=== PATIENT | female | born 1950 | race Caucasian/White ===

== ENCOUNTER 2021-12-14 23:19 | Inpatient (IN) | payer MEDICARE, OTHER, SELFPAY ==
[2021-12-14 23:23] VITALS: BP 201/83; PULSE 86; RESP 18; TEMP 36.2; O2SAT 94; BMI 54.8
--- NOTE | 2021-12-14 23:32 | CTR_ITS ---
PROCEDURE INFORMATION: Exam: CT Abdomen And Pelvis With Contrast Exam date and time: 12/15/2021 1:18 AM Age: 71 years old Clinical indication: Abdominal pain; Epigastric; Additional info: Abd pain TECHNIQUE: Imaging protocol: Computed tomography of the abdomen and pelvis with contrast. Radiation optimization: All CT scans at this facility use at least one of these dose optimization techniques: automated exposure control; mA and/or kV adjustment per patient size (includes targeted exams where dose is matched to clinical indication); or iterative reconstruction. Contrast material: OMNI 300; Contrast volume: 96 ml; Contrast route: INTRAVENOUS (IV); COMPARISON: No relevant prior studies available. RADIATION DOSE METRICS: Total DLP (mGy-cm): 2567.64 FINDINGS: Liver: Unremarkable. Gallbladder and bile ducts: Many gallstones in the gallbladder. The gallbladder wall is thickened, suggesting cholecystitis. Pancreas: Unremarkable. Spleen: Unremarkable. Adrenal glands: Unremarkable. Kidneys and ureters: The kidneys are unremarkable. No renal stones identified. No hydronephrosis on either side. Stomach and bowel: No bowel obstruction identified. Diverticulosis of the colon without evidence of diverticulitis. Appendix: A normal-appearing appendix is seen in the right lower quadrant. Intraperitoneal space: No free intraperitoneal air or fluid identified. Small fat-containing umbilical hernia. Arteries: Unremarkable. No abdominal aortic aneurysm. Lymph nodes: Unremarkable. Urinary bladder: Unremarkable as visualized. Reproductive: Prominent leiomyoma arising from the anteroinferior surface of the body of the uterus. Bones/joints: Moderate degenerative changes of the lumbar spine. Soft tissues: Unremarkable. CT/CT abdomen pelvis w con* [id number] IMPRESSION: 1. Many gallstones in the gallbladder. The gallbladder wall is thickened, suggesting cholecystitis.
--- NOTE | 2021-12-14 23:33 | ED_ITS ---
HPI - Abdominal Pain General: Chief Complaint: Abdominal Pain Stated Complaint: abd pain Time Seen by Provider: 12/14/21 23:23 Source: patient Mode of arrival: ambulatory Limitations: no limitations History of Present Illness: 71-year-old female who states that she has been having epigastric abdominal pain for months. She states it seems to happen after she is eating states that she ate this evening and start having severe epigastric abdominal pain at 7 PM that radiated her back states that since then its resolved she has no pain currently she has had some nausea denies any diarrhea denies any fevers. Denies any chest pain Associated Symptoms: Denies chills, dysuria and fever(s) Review of Systems Const: Denies: fever(s), chills, body aches or change in appetite Eyes: Denies: blurry vision or eye discomfort ENMT: Denies: throat pain or dental pain Card: Denies: chest pain Resp: Denies: dyspnea GI: Reports: abdominal pain : Denies: dysuria Musc: Denies: neck pain or back pain Skin/Breast: Denies: rash Neuro: Denies: headache(s) Psych: Denies: depression Vivek/Lymph: Denies: easy bruising All/Imm: Denies: urticaria PFSH ED PFSH: Medical History (Updated 12/15/21 @ 13:55 by Brenton Walters MD) Hypertension No pertinent past medical history Surgical History (Updated 12/15/21 @ 06:39 by Dagoberto Diego MD) H/O dilation and curettage Social History (Updated 12/14/21 @ 23:33 by Robert Richmond MD) Substance/Drug Use: never Physical Exam Const: COMMON NORMALS: no acute distress, patient oriented x3 and healthy appearing HENMT: COMMON NORMALS: normocephalic and atraumatic HEAD & SCALP: normocephalic and atraumatic Eye: COMMON NORMALS: Equal, round and reactive pupils present and EOMs intact bilaterally PUPIL: Yes Equal, round and reactive pupils present Neck/C-Spine: COMMON NORMALS: full ROM and supple Chest: COMMONS NORMALS: normal inspection of the chest and normal palpation of entire chest wall Resp: COMMON NORMALS: normal respiratory effort, No retractions, No use of accessory muscles and clear to auscultation bilaterally AUSCULTATION: clear to auscultation bilaterally Cardio: COMMON NORMALS: regular rate, regular rhythm and No murmurs present (Cardio) RATE: regular rate RHYTHM: regular rhythm GI: COMMON NORMALS: Normal to inspection, nondistended, normoactive bowel sounds present, Soft to palpation, non-tender and no masses PALPATION: Yes Soft to palpation Extremity: COMMON NORMALS: normal to inspection and full ROM Neuro: COMMON NORMALS: patient oriented x3, moves all extremities and no focal motor deficits Psych: COMMON NORMALS: mental status grossly normal, Normal thought process present and cooperative THOUGHT PROCESS: Normal thought process present Skin: COMMON NORMALS: no rashes or lesions noted and no wounds GENERAL SKIN EXAM: no rashes or lesions noted Course Vital Signs: Vital signs: Vital Signs Temperature 97.7 F 12/15/21 15:56 Pulse Rate 78 12/15/21 15:56 Respiratory Rate 18 12/15/21 15:56 Blood Pressure 159/70 12/15/21 15:56 Pulse Oximetry 93 12/15/21 15:56 MDM - Abdominal Pain Medical Decision Making Patient presents here with cholecystitis she did have elevated lipase did MRCP to rule out a choledocholithiasis that showed no signs of choledocholithiasis spoke to Dr. Romeo yo along with the hospitalist as she does have hypertension we will admit to hospitalist with Dr. Walters consulted. Lab Data : 12/14/21 23:55 12/15/21 00:20 Labs/Radiology: Radiology Impressions Abdomen/Pelvis CT 12/14/21 23:32 IMPRESSION: 1. Many gallstones in the gallbladder. The gallbladder wall is thickened, suggesting cholecystitis. Gallbladder Ultrasound 12/15/21 00:59 IMPRESSION: 1. Cholelithiasis. Cholangiopancreatography MRI 12/15/21 02:54 IMPRESSION: 1. Cholelithiasis with suspicion of acute cholecystitis. 2. No choledocholithiasis identified. Laboratory Results WBC 11.2 10^3/uL (4.0-10.0) H 12/14/21 23:55 RBC 5.29 10^6/uL (4.1-5.3) 12/14/21 23:55 Hgb 15.1 g/dL (11.5-15.3) 12/14/21 23:55 Hct 45.7 % (37.0-47.0) 12/14/21 23:55 MCV 86.4 fl (81-99) 12/14/21 23:55 MCH 28.5 pg (28.0-34.0) 12/14/21 23:55 MCHC 33.0 g/dL (30.0-36.0) 12/14/21 23:55 RDW 13.7 % (12.1-15.1) 12/14/21 23:55 Plt Count 169 10^3/cmm (130-400) 12/14/21 23:55 MPV 11.1 fL (7.4-10.4) H 12/14/21 23:55 Neut % (Auto) 81.7 % 12/14/21 23:55 Lymph % (Auto) 10.7 % 12/14/21 23:55 Forrest % (Auto) 5.8 % 12/14/21 23:55 Eos % (Auto) 1.2 % 12/14/21 23:55 Baso % (Auto) 0.3 % 12/14/21 23:55 Neut # (Auto) 9.17 10^3/uL (1.8-7.7) H 12/14/21 23:55 Lymph # (Auto) 1.2 10^3/uL (0.8-4.8) 12/14/21 23:55 Forrest # (Auto) 0.7 10^3/uL (0.2-0.9) 12/14/21 23:55 Eos # (Auto) 0.1 10^3/uL (0.0-0.8) 12/14/21 23:55 Baso # (Auto) 0.0 10^3/uL (0.0-0.1) 12/14/21 23:55 Nucleated RBC % (auto) 0 % 12/14/21 23: Nucleated RBCs # 0.0 /100WBC 12/14/21 23:55 Sodium 136 mmol/L (136-145) 12/15/21 00:20 Potassium 4.0 mmol/L (3.5-5.1) 12/15/21 00:20 Chloride 101 mmol/L (98-107) 12/15/21 00:20 Carbon Dioxide 24 mmol/L (22-29) 12/15/21 00:20 Anion Gap 15.0 (5-19) 12/15/21 00:20 BUN 10 mg/dL (8-23) 12/15/21 00:20 Creatinine 0.6 mg/dL (0.5-0.9) 12/15/21: GFR Calculation 98.8 mL/min (90-130) 12/15/21:20 Glucose 145 mg/dL (65-115) H 12/15/21 00: Estimat Average Glucose 100 12/15/21 00: Hemoglobin A1c 5.1 % (4.0-6.0) 12/15/21 00: Calculated Osmolality 284 mOsm/kg (285-295) L 12/15/21 00:20 Calcium 8.2 mg/dL (8.5-10.5) L 12/15/21: Total Bilirubin 1.3 mg/dL (0.15-1.2) H 12/15/21 00:20 AST 434 U/L (0-32) H 12/15/21 00: ALT 286 U/L (0-33) H 12/15/21 00: Alkaline Phosphatase 154 IU/L (35-105) H 12/15/21 00:20 NT-Pro-B Natriuret Pep 360 pg/mL (0-125) H 12/15/21 00:20 Total Protein 6.5 g/dL (6.6-8.7) L 12/15/21:20 Albumin 4.0 g/dL (3.5-5.2) 12/15/21 00: Globulin 2.5 g/dL (1.3-4.6) 12/15/21 00: Lipase 3816 U/L (13-60) H 12/15/21 00:20 Procalcitonin 0.05 ng/mL (0-0.5) 12/15/21 00: TSH 4.30 uIU/mL (0.27-4.20) H 12/15/21 00:20 Urine Color Yellow (Yellow) 12/15/21 00: Urine Appearance Clear (CLEAR) 12/15/21 00: Urine pH 5 (5-7) 12/15/21 00:02 Ur Specific Peculiar 1.020 (1.005-1.030) 12/15/21 00:02 Urine Protein Neg (Negative) 12/15/21 00:02 Urine Glucose (UA) Norm (Normal) 12/15/21 00:02 Urine Ketones Negative (Negative) 12/15/21 00:02 Urine Blood Neg (Negative) 12/15/21 00:02 Urine Nitrate Negative (Negative) 12/15/21 00:02 Urine Bilirubin Neg (Negative) 12/15/21 00:02 Urine Urobilinogen 1 mg/dL (Negative) H 12/15/21 00:02 Ur Leukocyte Esterase Negative (Negative) 12/15/21 00:02 Discharge Plan Discharge Patient Disposition: Admitted As Inpatient Admit Provider: Dagoberto Diego Condition: Stable Coding Level of Care Code ED Circulation Representative for Chg Fwd Exam Comprehensive
[2021-12-14 23:50] VITALS: BP 199/101; PULSE 77; RESP 16; O2SAT 94
[2021-12-15] VITALS (8 sets, daily range): BP systolic 138–217; BP diastolic 62–92; PULSE 72–87; RESP 16–18; TEMP 36.4–36.6; O2SAT 92–95
[2021-12-15] MEDS: sodium chloride 0.9% 1,000 ML 999 ML IV (00:07)
[2021-12-15 00:15] LABS: Basophils % 0.3 %; Eosinophils # 0.1 10^3/uL (0.0-0.8); Eosinophils % 1.2 %; Hematocrit 45.7 % (37.0-47.0); Hemoglobin 15.1 g/dL (11.5-15.3); Lymphocytes # 1.2 10^3/uL (0.8-4.8); Lymphocytes % 10.7 %; Mean Corpuscular Hemoglobin 28.5 pg (28.0-34.0); Mean Corpuscular Volume 86.4 fl (81-99); Mean Platelet Volume 11.1 fL (7.4-10.4); Monocytes # 0.7 10^3/uL (0.2-0.9); Monocytes % 5.8 %; Neutrophils # 9.17 10^3/uL (1.8-7.7); Neutrophils % 81.7 %; Nucleated Red Blood Cells % 0 %; Platelet Count 169 10^3/cmm (130-400); Red Blood Count 5.29 10^6/uL (4.1-5.3); Red Cell Distribution Width 13.7 % (12.1-15.1); White Blood Count 11.2 10^3/uL (4.0-10.0)
[2021-12-15 00:17] LABS: Add Urine Microscopic? NO; Charge for UA Resulting for Rev
[2021-12-15 00:21] LABS: Bilirubin Urine Neg (Negative); Blood Urine Neg (Negative); Glucose Urine UA Norm (Normal); Ketones Urine Negative (Negative); Leukocyte Esterase Urine Negative (Negative); Nitrate Urine Negative (Negative); Protein Urine Neg (Negative); Urine Appearance Clear (CLEAR); Urine Color Yellow (Yellow); Urobilinogen Urine 1 mg/dL (Negative); pH Urine 5 (5-7)
[2021-12-15 00:56] LABS: Alanine Aminotransferase 286 U/L (0-33); Alkaline Phosphatase 154 IU/L (35-105); Aspartate Amino Transferase 434 U/L (0-32); Blood Urea Nitrogen 10 mg/dL (8-23); Calcium 8.2 mg/dL (8.5-10.5); Carbon Dioxide 24 mmol/L (22-29); Chloride 101 mmol/L (98-107); Globulin 2.5 g/dL (1.3-4.6); Glomerular Filtration Rate 98.8 mL/min (90-130); Glucose 145 mg/dL (65-115); Osmolality Calculated 284 mOsm/kg (285-295); Sodium 136 mmol/L (136-145); Total Bilirubin 1.3 mg/dL (0.15-1.2); Total Protein 6.5 g/dL (6.6-8.7)
--- NOTE | 2021-12-15 00:59 | USR_ITS ---
PROCEDURE INFORMATION: Exam: US Abdomen, Limited; Right Upper Quadrant Exam date and time: 12/15/2021 1:50 AM Age: 71 years old Clinical indication: Abdominal pain; Flank; Right upper quadrant (ruq); Additional info: Abd pain TECHNIQUE: Imaging protocol: US abdomen. Real time ultrasound with image documentation. Limited exam focused on the right upper quadrant. COMPARISON: CT abdomen pelvis w con* [id number] 12/15/2021 1:18 AM FINDINGS: Liver: Visualized portions of the liver demonstrate normal contour and echogenicity. No intrahepatic or extrahepatic biliary dilation identified. Gallbladder: Many gallstones in the gallbladder. Gallbladder wall thickness is at the upper limit of normal at 0.3 cm. No pericholecystic fluid identified. Sonographic Zimmerman sign not present. Common bile duct: The common bile duct is upper limits of normal in caliber at 0.7 cm. No common bile duct stone identified. Pancreas: Limited visualization of the pancreas due to bowel gas. Visualized portion is unremarkable. Right kidney: The right kidney measures 11.1 cm in length. No hydronephrosis, calculi, or solid masses identified involving the right kidney. There is questionably a 2.7 cm cyst in the right kidney upper pole on this study, however, this is not corroborated on recent CT scan and is not felt to represent a true finding. US/US gall bladder [id number] IMPRESSION: 1. Cholelithiasis.
[2021-12-15] MEDS: labetalol 5 mg/mL SDV 20mL 10 MG IVP (01:06)
[2021-12-15] MEDS: iohexol 300 mg/mL 100 mL Btl IV (01:26)
[2021-12-15 01:49] LABS: Lipase 3816 U/L (13-60)
[2021-12-15] MEDS: piperacillin-tazobactam 3.375 GM in sodium chloride 0.9% (plus) 50 ML IV ×4 (02:30→23:59)
[2021-12-15] MEDS: labetalol 5 mg/mL SDV 20mL 20 MG IVP (02:31)
--- NOTE | 2021-12-15 02:54 | MRR_ITS ---
PROCEDURE INFORMATION: Exam: MR Abdomen Without Contrast Exam date and time: 12/15/2021 4:34 AM Age: 71 years old Clinical indication: Generalized; Patient HX: Abdominal pain x 2 mos, progressively getting worse; Additional info: Choledocholithiasis TECHNIQUE: Imaging protocol: MR of the abdomen without contrast. COMPARISON: CT abdomen pelvis w con* [id number] 12/15/2021 1:18 AM FINDINGS: Liver: No mass. Gallbladder and bile ducts: Many gallstones in the gallbladder. The gallbladder wall has a thickened appearance. Mild pericholecystic edema. Appearance suggests cholecystitis. No choledocholithiasis identified. Pancreas: Unremarkable. No ductal dilation. Spleen: Unremarkable. No splenomegaly. Adrenal glands: Unremarkable. No mass. Kidneys and ureters: Unremarkable. No solid mass. No hydronephrosis. Stomach and bowel: Visualized stomach and intestines are unremarkable. Intraperitoneal space: No free fluid. Arteries: No abdominal aortic aneurysm. Bones/joints: Unremarkable. Soft tissues: Unremarkable. MR/MR MRCP [id number] IMPRESSION: 1. Cholelithiasis with suspicion of acute cholecystitis. 2. No choledocholithiasis identified.
[2021-12-15] MEDS: LORazepam 2 mg/mL INJ 1 mL 0.5 MG IVP (04:27)
--- NOTE | 2021-12-15 06:02 | PM.HP ---
Providers/Chief Complaint Admitting Physician: Dagoberto Diego MD Chief Complaint: abd pain History of Present Illness Dmitriy Henriquez is a 71 year old female who has history of hypertension, obesity does not carry diagnosis of CHF or diabetes presented to the hospital with chief complaint of dry heaves and abdominal pain Patient is stating that she has been experiencing abdominal cramps and pain for last 2 months every time she is eating heavy meals, she loves to drink milk. Her abdominal pain gets worse after meals but last night she could not tolerate her pain to associated with rigors/chills. She is denying fever, vomiting, diarrhea, chest pain. She has bilateral lower extremity swelling no previous history of CHF, DC or coronary disease. She does not carry diagnosis of diabetes. No previous history of pancreatitis or cholecystitis. In the ER she was diagnosed with pancreatitis however CT abdomen pelvis did not show pancreatic inflammation lipase enzymes are high, multiple gallstones without CBD dilation, no signs of cholangitis, there was initially concern to transfer for possible ERCP however gallbladder ultrasound did not show CBD dilation, Dr. Walters requested to admit under hospitalist service When I examined the patient she was hypertensive, afebrile, abnormal liver enzymes and lipase noted, Zimmerman sign negative, no active nausea or vomiting In the ER she received multiple doses of labetalol, Ativan, she received 1 dose of Zosyn, Review of Systems Const: Reports: chills and fatigue; Denies: fever(s) Eyes: Denies: change in vision ENMT: Denies: throat pain Card: Reports: edema; Denies: chest pain Resp: Denies: dyspnea GI: Reports: abdominal pain and nausea : Denies: flank pain or dribbling Musc: Denies: neck pain Skin/Breast: Denies: rash Neuro: Denies: headache(s) Psych: Denies: anxiety Endo: Denies: polyuria Vivek/Lymph: Denies: easy bruising All/Imm: Denies: urticaria PFSH Acute PFSH: Medical History (Updated 12/15/21 @ 06:39 by Dagoberto Diego MD) Hypertension No pertinent past medical history Surgical History (Updated 12/15/21 @ 06:39 by Dagoberto Diego MD) H/O dilation and curettage Social History (Updated 12/14/21 @ 23:33 by Robert Richmond MD) Substance/Drug Use: never Vitals/I&O/Wt Last Vital Signs Temp 97.2 F L 12/14/21 23:23 Pulse 75 12/15/21 05:18 Resp 18 12/15/21 05:18 BP 215/74 12/15/21 05:18 Pulse Ox 95 12/15/21 05:18 12/14/21 12/14/21 12/15/21 14:59 22:59 06:59 Intake Total 1000 / 1000 Balance 1000 / 1000 Weight last 48 hrs Weight 136.078 kg Physical Exam Narrative: Morbidly obese female Currently laying flat in her bed Hypertensive Nonfocal neuro exam EOMI, PERRLA Abdomen soft, Zimmerman sign negative Distended abdomen No signs of peritonitis No rebound tenderness or rigidity 1+ pitting edema bilateral lower extremities Hard to assess her volume status Morbidly obese Pleasant and cooperative Nonfocal neuro exam Saturating well on room air No adventitious rhonchi or crackles No active chest pain Data : 12/14/21 23:55 12/15/21 00:20 A&P Assessment and plan (1) Pancreatitis: Status: Acute (2) Cholecystitis: Status: Acute (3) Hypertensive urgency: Status: Acute Plan Acute cholecystitis Cholelithiasis induced cholecystitis Gallstone induced pancreatitis Most likely gallstone has passed through the ducts No CBD dilation No signs of cholangitis Afebrile No signs of sepsis MRCP, CT abd REVIEWED Gallbladder ultrasound reviewed General surgery is consulted We will keep her n.p.o. Continue IV fluids and Zosyn Closely monitor for development of cholangitis, She is at high risk for recurrence of symptoms, stone obstruction as there are multiple gallstones identified on the ultrasound of the gallbladder For hypertensive urgency, will add diuretic, chlorthalidone, would avoid lisinopril in anticipation of surgery, she has trace edema of lower extremities would avoid metoprolol and amlodipine, will request echo to rule out CHF, She might benefit from sleep study outpatient Check A1c level Trend lipase Patient does not want chest compression or intubation however agreeable for surgical intervention DNR/DNI N.p.o. DVT prophylaxis: SCDs High risk for metabolic syndrome Attestations Medical Necessity Statement*: Patient has cholecystitis, cholangitis choledocholithiasis high risk for cholangitis, will need more than 2 midnights in the hospital Time Spent in Patient Care: 40mins Coding Level of Care Code Acute Commercial Loan Officer for Chg Fwd Diagnoses Pancreatitis K85.90 Cholecystitis K81.9 Hypertensive urgency I16.0
[2021-12-15 06:34] LABS: Procalcitonin 0.05 ng/mL (0-0.5)
[2021-12-15] MEDS: hyDRALAzine 20 mg/mL INJ 1 mL 10 MG IVP (07:25)
--- NOTE | 2021-12-15 08:11 | USCV_ITS ---
Dmitriy Henriquez Age: 71 Gender: F : 1950 Exam Date: 12/15/2021 09:37 Ordering Phys: Dagoberto Deigo MD Technologist: Thao Faust [place] [facility] [place]: new chf BP: 151 / 81 HR: 79 Rhythm: Sinus Technical Quality: MEASUREMENTS (Male / Female) Normal Values 2D ECHO LV Diastolic Diameter PLAX 3.5 cm 4.2 - 5.9 / 3.9 - 5.3 cm LV Systolic Diameter PLAX 2.4 cm IVS Diastolic Thickness 1.9 cm 0.6 - 1.0 / 0.6 - 0.9 cm IVS Systolic Thickness 2.3 cm LVPW Diastolic Thickness 1.4 cm 0.6 - 1.0 / 0.6 - 0.9 cm LVPW Systolic Thickness 1.8 cm LVOT Diameter 2.0 cm LV Ejection Fraction 2D Teich 62.2 % LV Ejection Fraction MOD 2C 79.9 % LV Ejection Fraction 2C AL 79.1 % LA Diameter 4.0 cm LA Width 4.0 cm LA Height 5.1 cm RA Width 3.6 cm RA Height 4.8 cm Aorta at Sinotubular Diameter 2.5 cm M-MODE Aortic Annulus Diameter 2.4 cm LA Ao Ratio MM 1.5 MV E Point Septal Separation 0.5 cm DOPPLER AV Peak Velocity 192.0 cm/s LVOT Peak Velocity 124.0 cm/s AV Area Cont Eq vti 2.4 cm squared AV Area Cont Eq pk 2.1 cm squared MV Peak Velocity 131.0 cm/s MV Area PHT 3.7 cm squared Mitral E to A Ratio 1.1 MV E' Velocity 56.5 cm/s Mitral E to MV E' Ratio 13.5 Mitral E to LV E' Lateral Ratio 13.5 Mitral E to LV E' Septal Ratio 13.6 TR Peak Velocity 335.6 cm/s TR Peak Gradient 45.1 mmHg TR Mean Velocity 281.4 cm/s TR Mean Gradient 32.9 mmHg TR Velocity Time Integral 122.0 cm TV Peak E Velocity 81.0 cm/s Right Atrial Pressure 3.0 mmHg Pulmonary Artery Systolic Pressu 48.1 mmHg PV Peak Velocity 136.0 cm/s RV Acceleration Time 0.1 s RV Ejection Time 0.3 s RV AcT/ET 0.3 FINDINGS Left Ventricle Normal left ventricular size. Normal LV systolic function with EF of 55-60%. No regional wall motion abnormalities. Diastolic function is normal Right Ventricle The right ventricle is normal in size and function. Right Atrium The right atrium is normal in size. Left Atrium The left atrium is normal in size. Mitral Valve Structurally normal mitral valve without significant stenosis or prolapse. There is mild mitral regurgitation. Aortic Valve Grossly normal. Mild aortic stenosis with mean gradient across the aortic valve of 10.4mmHg. There is mild to moderate aortic regurgitation. Tricuspid Valve Structurally normal tricuspid valve without significant stenosis. Mild tricuspid regurgitation. RVSP is 40-45mmHg. This is consistent with mild pulmonary hypertension Pulmonic Valve Structurally normal pulmonic valve without significant stenosis. There is no pulmonic regurgitation. Pericardium Normal pericardium without effusion. Aorta Normal ascending aorta dimension. CONCLUSIONS LV systolic function is normal with EF of 55-60% Diastolic function is normal Mild mitral regurgitation Mild aortic stenosis with mean gradient across the aortic valve of 10.4 mmHg. Mild to moderate aortic regurgitation Mild tricuspid regurgitation. Mild pulmonary hypertension No comparison studies are available Reginaldo Cardenas MD (Electronically Signed) Final Date: 15 December 2021 10:45 S
[2021-12-15 08:34] LABS: Estmated Average Glucose 100; Hemoglobin A1C 5.1 % (4.0-6.0)
[2021-12-15 08:41] LABS: NT Pro B Type Natriuretic Pept 360 pg/mL (0-125)
[2021-12-15] MEDS: sodium chloride 0.9% 1,000 ML 75 ML IV ×2 (09:09→22:30)
[2021-12-15] MEDS: perflutren protein-a microsphr 0.22 mg/mL SDV 3 mL IV (10:22)
--- NOTE | 2021-12-15 10:34 | PM.PN ---
Subjective Subjective: Doing okay. The pain is currently well controlled. No nausea or vomiting. No fever or chills. No shortness of breath. Medications: Medication Review Details: Generic Name Dose Route Start Last Admin Trade Name Tom PRN Reason Stop Dose Admin Chlorthalidone 12.5 mg 12/15/21 09:00 12/15/21 09:15 Chlorthalidone 2 5 Mg Tablet PO Not Given DAILY ORALIA Piperacillin Sod/T azobactam 50 mls @ 12.5 mls /hr 12/15/21 08:30 12/15/21 08:51 Sod 3.375 gm/ So dium Chloride IV 12.5 mls/hr Q8H ORALIA Administration Protocol Sodium Chloride 1,000 mls @ 75 ml s/hr 12/15/21 08:11 12/15/21 09:09 Sodium Chloride 0.9% IV 75 mls/hr .[id number] ORALIA Administration Vitals/I&O/Wt Last Vital Signs Temp 97.9 F 12/15/21 08:36 Pulse 72 12/15/21 08:36 Resp 18 12/15/21 08:36 BP 151/81 12/15/21 08:36 Pulse Ox 95 12/15/21 08:36 12/14/21 12/15/21 12/15/21 22:59 06:59 14:59 Intake Total 1050 / 1050 Output Total 400 / 400 Balance 1050 / 1050 -400 / -400 Weight last 48 hrs Weight 136.078 kg Physical Exam Narrative: Awake alert oriented. No acute distress. Mood and affect are appropriate. Responses are adequate. Skin is warm and dry. Moist mucous brains Eyes PERRL, extraocular muscles are intact. No icterus Neck no JVD Lungs clear to auscultation bilaterally. No respiratory distress Heart S1, S2, regular Abdomen soft, nontender, bowel sounds are present Extremities no edema cyanosis or calf tenderness bilaterally Neuro examination is nonfocal Normal speech Data : 12/14/21 23:55 12/15/21 00:20 A&P Assessment and plan (1) Pancreatitis: Status: Acute (2) Cholecystitis: Status: Acute (3) Hypertensive urgency: Status: Acute Plan Acute cholecystitis Cholelithiasis induced cholecystitis Gallstone induced pancreatitis Most likely gallstone has passed through the ducts No CBD dilation No signs of cholangitis Afebrile No signs of sepsis MRCP, CT abd REVIEWED Gallbladder ultrasound reviewed General surgery is consulted We will keep her n.p.o. Continue IV fluids and Zosyn Closely monitor for development of cholangitis, She is at high risk for recurrence of symptoms, stone obstruction as there are multiple gallstones identified on the ultrasound of the gallbladder For hypertensive urgency, will add diuretic, chlorthalidone, would avoid lisinopril in anticipation of surgery, she has trace edema of lower extremities would avoid metoprolol and amlodipine, will request echo to rule out CHF, She might benefit from sleep study outpatient Check A1c level Trend lipase Patient does not want chest compression or intubation however agreeable for surgical intervention DNR/DNI N.p.o. DVT prophylaxis: SCDs High risk for metabolic syndrome [place] Acute cholelithiasis and possible cholecystitis with associated gallstone pancreatitis. Dr. Walters is consulted. The patient will probably go for surgery today. Continuing pain management, IV fluids, Zosyn. We will monitor CMP and lipase. Hypertensive urgency. As needed medications are adjusted. We will continue monitoring and adjusting maintenance medications. DVT prophylaxis. SCDs. No anticoagulation due to upcoming surgery. The plan of care was discussed with the patient. She verbalized understanding and agreement Attestations Medical Necessity Statement*: Needs surgery. Coding Level of Care Code Acute Ticket Agent for Neymar Byrd Diagnoses Pancreatitis K85.90 Cholecystitis K81.9 Hypertensive urgency I16.0
--- NOTE | 2021-12-15 10:43 | PC.NURSE ---
Patient arrived to floor via wc, no c/o pain at this time, able to walk to bed without difficulty. BP slightly elevated but better than previous charted and remaining VSS. Room is clean and clutter free with call light in reach.
--- NOTE | 2021-12-15 13:53 | P.CONIM_ITS ---
Providers/Reason For Consult Consulting Physician/Specialty*: General Surgery Dr. Walters Reason for Consult*: Pancreatitis Attending Physician: Praneeth Guerra History of Present Illness History of Present Illness Dmitriy Henriquez is a 71 year old female who presented to the ER last night with severe abdominal pain associate with nausea. Patient states that she has been having intermittent episodes of abdominal pain especially with fatty foods for the last few months and therefore she has been avoiding all fatty foods. Patient denies any fevers or chills. She denies any history of prior hospitalization with similar symptoms. In the ER patient was noted to have elevated lipase and therefore underwent a CT abdomen pelvis which showed cholelithiasis and a subsequent MRCP confirmed no evidence of choledocholithiasis. Review of Systems General: Reports: 10 or more systems reviewed and unremarkable except in HPI and below Medications/Allergies Home Medications Medication Instructions Recorded Confirmed Last Taken Type cetirizine 10 mg tablet (Zyrtec) 10 mg PO DAILY 12/15/21 12/15/21 Unknown History ibuprofen 200 mg tablet 600 mg PO Q6H PRN 12/15/21 12/15/21 Unknown History Allergies Allergy/AdvReac Type Severity Reaction Status Date / Time formaldehyde Allergy Unknown Verified 12/15/21 08:02 Current Medications Generic Name Dose Route Start Last Admin Trade Name Freq PRN Reason Stop Dose Admin Chlorthalidone 12.5 mg 12/15/21 09:00 12/15/21 09:15 Chlorthalidone 25 Mg Tablet PO Not Given DAILY ORALIA Piperacillin Sod/Tazobactam 50 mls @ 12.5 mls/hr 12/15/21 08:30 12/15/21 12:57 Sod 3.375 gm/ Sodium Chloride IV Infused Q8H ORALIA Infusion Protocol Sodium Chloride 1,000 mls @ 75 mls/hr 12/15/21 08:11 12/15/21 09:09 Sodium Chloride 0.9% IV 75 mls/hr .[id number] ORALIA Administration PFSH Acute PFSH: Medical History (Updated 12/15/21 @ 13:55 by Brenton Walters MD) Hypertension No pertinent past medical history Surgical History (Updated 12/15/21 @ 06:39 by Dagoberto Diego MD) H/O dilation and curettage Social History (Updated 12/14/21 @ 23:33 by Robert Richmond MD) Substance/Drug Use: never Vitals/I&O/Wt Last Vital Signs Temp 97.7 F 12/15/21 11:49 Pulse 81 12/15/21 11:49 Resp 17 12/15/21 11:49 BP 138/62 12/15/21 11:49 Pulse Ox 94 12/15/21 11:49 12/14/21 12/15/21 12/15/21 22:59 06:59 14:59 Intake Total 1050 / 1050 50 / 50 Output Total 400 / 400 Balance 1050 / 1050 -350 / -350 Weight last 48 hrs Weight 300 lb Physical Exam Narrative: HEENT: Normocephalic Eye: Sclera /conjunctiva normal Abdomen: Soft to palpation, nontender, nondistended Neurological: Oriented to place person and time Skin: Intact, no lesions appreciated on gross exam Data : 12/14/21 23:55 12/15/21 00:20 A&P Assessment and plan (1) Cholelithiasis: CT, MRCP and ultrasound showed cholelithiasis with possible cholecystitis. Her LFTs are mildly elevated and her WBC was 11.2. Patient has had symptoms prior to this hospitalization suggestive of symptomatic cholelithiasis. We will therefore plan for laparoscopic possible open cholecystectomy once pancreatitis has subsided. Procedure, risks, benefits and alternatives have been discussed with the patient who wishes to proceed with surgery. Status: Acute (2) Pancreatitis: Patient was noted to have lipase of 3816 and elevated LFTs but is currently completely asymptomatic. MRCP showed no evidence of choledocholithiasis but based on the lab work I suspect she most likely passed a stone. We will therefore repeat daily labs until her lipase has trended down close to normal. She can have clear liquid diet today and, stay n.p.o. after midnight Status: Acute Consult Attestations Medical Necessity Statement: As per attending physician Coding Level of Care Code Acute Horticultural Therapist for Neymar Byrd Diagnoses Cholelithiasis K80.20 Pancreatitis K85.90
[2021-12-16] VITALS (18 sets, daily range): BP systolic 133–181; BP diastolic 64–107; PULSE 70–87; RESP 12–27; TEMP 36.7–37.3; O2SAT 90–97
[2021-12-16 06:00] LABS: Basophils % 0.5 %; Eosinophils # 0.3 10^3/uL (0.0-0.8); Eosinophils % 3.5 %; Hematocrit 41.2 % (37.0-47.0); Hemoglobin 13.7 g/dL (11.5-15.3); Lymphocytes # 1.6 10^3/uL (0.8-4.8); Lymphocytes % 20.8 %; Mean Corpuscular HGB Conc 33.3 g/dL (30.0-36.0); Mean Corpuscular Hemoglobin 29.2 pg (28.0-34.0); Mean Corpuscular Volume 87.8 fl (81-99); Mean Platelet Volume 10.8 fL (7.4-10.4); Monocytes # 0.6 10^3/uL (0.2-0.9); Monocytes % 7.9 %; Neutrophils # 5.18 10^3/uL (1.8-7.7); Neutrophils % 66.9 %; Nucleated Red Blood Cells % 0 %; Platelet Count 154 10^3/cmm (130-400); Red Blood Count 4.69 10^6/uL (4.1-5.3); Red Cell Distribution Width 14.6 % (12.1-15.1); White Blood Count 7.7 10^3/uL (4.0-10.0)
[2021-12-16 06:32] LABS: Alanine Aminotransferase 380 U/L (0-33); Albumin Level 3.4 g/dL (3.5-5.2); Alkaline Phosphatase 156 IU/L (35-105); Anion Gap 15.8 (5-19); Aspartate Amino Transferase 229 U/L (0-32); Blood Urea Nitrogen 6 mg/dL (8-23); C Reactive Protein 16.8 mg/L (0.0-4.9); Calcium 8.5 mg/dL (8.5-10.5); Carbon Dioxide 22 mmol/L (22-29); Chloride 107 mmol/L (98-107); Globulin 2.9 g/dL (1.3-4.6); Glomerular Filtration Rate 98.8 mL/min (90-130); Glucose 105 mg/dL (65-115); Lipase 38 U/L (13-60); Magnesium 2.3 mg/dL (1.7-2.3); Osmolality Calculated 290 mOsm/kg (285-295); Potassium 3.8 mmol/L (3.5-5.1); Sodium 141 mmol/L (136-145); Total Protein 6.3 g/dL (6.6-8.7)
--- NOTE | 2021-12-16 07:30 | ECG_ITS ---
[facility] Test Date: 2021-12-16 Pat Name: Dmitriy Henriquez Department: Room: 251 Gender: Female Bill Clerk: : 1950 Requested By: Selena Tavares Order Number: [id number] Roselia MD: Reginaldo Cardenas M.D. Measurements Intervals [place] Rate: 75 P: 40 AK: 153 QRS: -32 QRSD: 101 T: 105 QT: 397 QTc: 444 Interpretive Statements SINUS RHYTHM LEFT AXIS DEVIATION [QRS AXIS < -30] LOW QRS VOLTAGE IN PRECORDIAL LEADS [QRS DEFLECTION < 1.0 mV IN CHEST LEADS] POSSIBLE ANTERIOR MYOCARDIAL INFARCTION , PROBABLY OLD [30 ms Q WAVE IN V3/V4, OR R < 0.2 mV IN V4] MODERATE T-WAVE ABNORMALITY, CONSIDER LATERAL ISCHEMIA [-0.1+ mV T-WAVE IN I/aVL/V5/V6] No previous ECG available for comparison Electronically Signed On 12-16-2021 22:17:50 CDT by Reginaldo Cardenas M.D. [id number]
[2021-12-16] MEDS: chlorthalidone 25 mg Tablet 12.5 MG PO (09:29)
[2021-12-16] MEDS: amlodipine 5 mg Tablet PO ×2 (09:29→17:08)
--- NOTE | 2021-12-16 09:29 | P.ANESASSM_ITS ---
Pre-Anesthetic Assessment Height/Weight: Height 1.57 m Weight 136.078 kg Temp Pulse Resp BP Pulse Ox 98.8 F 77 18 181/81 93 12/16/21 07:19 12/16/21 08:48 12/16/21 08:48 12/16/21 07:19 12/16/21 08:48 Preop Diagnosis: Gallstone pancreatitis Operation Date: 12/16/21 11:45 Proposed Procedures p Laparoscopic Cholecystectomy(Not Applicable) - Brenton Walters MD Familial anesthetic complications: None Was Clonidine taken within 24 hours: N/A Last intake: Intake Last Liquid Date 12/15/21 Last Solid Date 12/15/21 Social No alcohol and No tobacco Exam alert, oriented x 3, clear to auscultation bilaterally and regular rate & rhythm Airway Submandibular: Other (Limited extension ) Cervical ROM: within normal limits Mallampati: Class II Dentition: chipped Pulmonary None reported Denies JEANINE CV/HEM Hypertension (Hypertensive urgency this admission ) Denies CAD, MS METS > 4 None reported Hepatic Elevated AST/ALT , gallstone pancreatitis GI Hiatal Hernia Metabolic None reported Musc/skel None reported Neuropsych None reported Denies stroke, seizure Anesthetic Plan ASA status: 3 (71 year old female with gallstone pancreatitis, morbid obesity, and hypertensive urgency this admission ) Anesthesia: Anesthesia Evaluation and General Other: We discussed risk and benefits of general anesthesia including PONV, sore throat (sometimes severe), corneal abrasion, positioning and peripheral nerve injuries, life threatening allergic reaction, post operative ICU admission requiring prolonged intubation, stroke, heart attack, , and rare incidences of recall. Patient consents to proceed with general anesthesia. Risk of > 500 ml blood loss (7ml/kg in children): No Medications/Allergies Home Medications Medication Instructions Recorded Confirmed Last Taken Type cetirizine 10 mg tablet (Zyrtec) 10 mg PO DAILY 12/15/21 12/15/21 Unknown History ibuprofen 200 mg tablet 600 mg PO Q6H PRN 12/15/21 12/15/21 Unknown History Allergies Allergy/AdvReac Type Severity Reaction Status Date / Time formaldehyde Allergy Unknown Verified 12/15/21 08:02 grass pollen Allergy ALGY-Sneezi Verified 12/16/21 02:57 ng Current Medications Generic Name Dose Route Start Last Admin Trade Name Freq PRN Reason Stop Dose Admin Chlorthalidone 12.5 mg 12/15/21 09:00 12/15/21 09:15 Chlorthalidone 25 Mg Tablet PO Not Given DAILY ORALIA Piperacillin Sod/Tazobactam 50 mls @ 12.5 mls/hr 12/15/21 08:30 12/16/21 04:34 Sod 3.375 gm/ Sodium Chloride IV Infused Q8H ORALIA Infusion Protocol Sodium Chloride 1,000 mls @ 75 mls/hr 12/15/21 08:11 12/15/21 22:30 Sodium Chloride 0.9% IV 75 mls/hr .[id number] ORALIA Administration Additional Medication Information Generic Name Dose Route Start Last Admin Trade Name Freq PRN Reason Stop Dose Admin Chlorthalidone 12.5 mg 12/15/21 09:00 12/15/21 09:15 Chlorthalidone 25 Mg Tablet PO Not Given DAILY ORALIA Piperacillin Sod/Tazobactam 50 mls @ 12.5 mls/hr 12/15/21 08:30 12/15/21 08:51 Sod 3.375 gm/ Sodium Chloride IV 12.5 mls/hr Q8H ORALIA Administration Protocol Sodium Chloride 1,000 mls @ 75 mls/hr 12/15/21 08:11 12/15/21 09:09 Sodium Chloride 0.9% IV 75 mls/hr .[id number] ORALIA Administration PFSH Anesthesia Medical History Hypertension No pertinent past medical history Surgical History H/O dilation and curettage Social History Substance/Drug Use: never Data Anesthesia : 12/16/21 05:37 12/16/21 05:37 Short CBC 12/14/21 12/16/21 Range/Units 23:55 05:37 WBC 11.2 H 7.7 (4.0-10.0) 10^3/uL Hgb 15.1 13.7 (11.5-15.3) g/dL Hct 45.7 41.2 (37.0-47.0) % MCV 86.4 87.8 (81-99) fl Plt Count 169 154 (130-400) 10^3/cmm Neut % (Auto) 81.7 66.9 % Neut # (Auto) 9.17 H 5.18 (1.8-7.7) 10^3/uL BMP 12/14/21 12/15/21 12/16/21 23:55 00:20 05:37 Sodium Cancelled 136 141 Potassium Cancelled 4.0 3.8 Chloride Cancelled 101 107 Carbon Dioxide Cancelled 24 22 BUN Cancelled 10 6 L Creatinine Cancelled 0.6 0.6 Glucose Cancelled 145 H 105 Calcium Cancelled 8.2 L 8.5 Cardiac Enzymes 12/15/21 Range/Units 00:20 NT-Pro-B Natriuret Pep 360 H (0-125) pg/mL Liver Function 12/14/21 12/15/21 12/16/21 Range/Units 23:55 00:20 05:37 Total Bilirubin Cancelled 1.3 H 1.0 AST Cancelled 434 H 229 H ALT Cancelled 286 H 380 H Alkaline Phosphatase Cancelled 154 H 156 H Albumin Cancelled 4.0 3.4 L Urine 12/15/21 Range/Units 00:02 Urine Color Yellow (Yellow) Urine Appearance Clear (CLEAR) Urine pH 5 (5-7) Ur Specific [place] 1.020 (1.005-1.030) Urine Protein Neg (Negative) Urine Glucose (UA) Norm (Normal) Urine Ketones Negative (Negative) Urine Nitrate Negative (Negative) Urine Bilirubin Neg (Negative) Ur Leukocyte Esterase Negative (Negative) Coags 12/16/21 05:37 C-Reactive Protein 16.8 H Cardiac Studies: Echocardiogram 12/15/21
[2021-12-16] MEDS: piperacillin-tazobactam 3.375 GM in sodium chloride 0.9% (plus) 50 ML IV (09:31)
--- NOTE | 2021-12-16 10:39 | PM.PN ---
Subjective Subjective: Doing okay. Denies pain. No nausea or vomiting. No fever or chills. No shortness of breath. Medications: Medication Review Details: Generic Name Dose Route Start Last Admin Trade Name Tom PRN Reason Stop Dose Admin Chlorthalidone 12.5 mg 12/15/21 09:00 12/15/21 09:15 Chlorthalidone 2 5 Mg Tablet PO Not Given DAILY ORALIA Piperacillin Sod/T azobactam 50 mls @ 12.5 mls /hr 12/15/21 08:30 12/15/21 08:51 Sod 3.375 gm/ So dium Chloride IV 12.5 mls/hr Q8H ORALIA Administration Protocol Sodium Chloride 1,000 mls @ 75 ml s/hr 12/15/21 08:11 12/15/21 09:09 Sodium Chloride 0.9% IV 75 mls/hr .[id number] ORALIA Administration Vitals/I&O/Wt Last Vital Signs Temp 98.8 F 12/16/21 07:19 Pulse 77 12/16/21 08:48 Resp 18 12/16/21 08:48 BP 181/81 12/16/21 07:19 Pulse Ox 93 12/16/21 08:48 12/15/21 12/16/21 12/16/21 22:59 06:59 14:59 Intake Total 1350 / 1400 50 / 1450 Balance 1350 / 1000 50 / 1050 Weight last 48 hrs Weight 136.078 kg Physical Exam Narrative: Awake alert oriented. No acute distress. Mood and affect are appropriate. Responses are adequate. Skin is warm and dry. Moist mucous brains Eyes PERRL, extraocular muscles are intact. No icterus Neck no JVD Lungs clear to auscultation bilaterally. No respiratory distress Heart S1, S2, regular Abdomen soft, nontender, bowel sounds are present Extremities no edema cyanosis or calf tenderness bilaterally Neuro examination is nonfocal Normal speech Data : 12/16/21 05:37 12/16/21 05:37 A&P Assessment and plan (1) Pancreatitis: Status: Acute (2) Cholecystitis: Status: Acute (3) Hypertensive urgency: Status: Acute Plan Acute cholecystitis Cholelithiasis induced cholecystitis Gallstone induced pancreatitis Most likely gallstone has passed through the ducts No CBD dilation No signs of cholangitis Afebrile No signs of sepsis MRCP, CT abd REVIEWED Gallbladder ultrasound reviewed General surgery is consulted We will keep her n.p.o. Continue IV fluids and Zosyn Closely monitor for development of cholangitis, She is at high risk for recurrence of symptoms, stone obstruction as there are multiple gallstones identified on the ultrasound of the gallbladder For hypertensive urgency, will add diuretic, chlorthalidone, would avoid lisinopril in anticipation of surgery, she has trace edema of lower extremities would avoid metoprolol and amlodipine, will request echo to rule out CHF, She might benefit from sleep study outpatient Check A1c level Trend lipase Patient does not want chest compression or intubation however agreeable for surgical intervention DNR/DNI N.p.o. DVT prophylaxis: SCDs High risk for metabolic syndrome [place] Acute cholelithiasis and possible cholecystitis with associated gallstone pancreatitis. Dr. Walters is consulted. We appreciate his input. Pancreatitis has resolved based on the lipase level and pain improvement. Continuing pain management, IV fluids, Zosyn. We will monitor labs. Hypertensive urgency. As needed medications are adjusted. We will continue monitoring and adjusting maintenance medications. DVT prophylaxis. SCDs. No anticoagulation due to possible upcoming surgery. The plan of care was discussed with the patient. She verbalized understanding and agreement Attestations Medical Necessity Statement*: Pending surgery. Possible discharge today after the surgery. Coding Level of Care Code Acute Web Applications Programmer for Neymar Byrd Diagnoses Pancreatitis K85.90 Cholecystitis K81.9 Hypertensive urgency I16.0
[2021-12-16] MEDS: sodium chloride 0.9% 1,000 ML 75 ML IV (11:02)
[2021-12-16 11:23] LABS: Glucose Point of Care 95 mg/dL (70-110)
--- NOTE | 2021-12-16 11:37 | P.PN_ITS ---
Subjective Subjective: Patient denies any abdominal pain, nausea, vomiting, lipase is down to normal Vitals/I&O/Wt Last Vital Signs Temp 98.8 F 12/16/21 07:19 Pulse 77 12/16/21 08:48 Resp 18 12/16/21 08:48 BP 181/81 12/16/21 07:19 Pulse Ox 93 12/16/21 08:48 12/15/21 12/16/21 12/16/21 22:59 06:59 14:59 Intake Total 1350 / 1450 50 / 1450 940 / 940 Balance 1350 / 1050 50 / 1050 940 / 940 Weight last 48 hrs Weight 300 lb Physical Exam Narrative: Abdomen: Soft Data : 12/16/21 05:37 12/16/21 05:37 A&P Assessment and plan (1) Cholelithiasis: CT, MRCP and ultrasound showed cholelithiasis with possible cholecystitis. Her LFTs are mildly elevated and her lipase and WBC is down to normal. Plan for laparoscopic possible open cholecystectomy today Procedure, risks, benefits and alternatives have been discussed with the patient who wishes to proceed with surgery. Status: Acute (2) Pancreatitis: Patient was noted to have lipase of 3816 and elevated LFTs but is currently comp letely asymptomatic. MRCP showed no evidence of choledocholithiasis but based on the lab work I susp ect she most likely passed a stone. We will therefore repeat daily labs until her lipase has trended down close to normal. She can have clear liquid diet today and, stay n.p.o. after midnight Status: Acute Attestations Medical Necessity Statement*: Gallstone pancreatitis Coding Level of Care Code Acute Online Marketing Analyst for Neymar Byrd Diagnoses Cholelithiasis K80.20 Pancreatitis K85.90
--- NOTE | 2021-12-16 12:12 | PC.CHAP ---
Pastoral Care Encounter/Spiritual Assessment Type of Contact [] Declined director quality assurance visit [] Patient/Family/Request visit [] Outpatient visit [] Follow-up visit [] Physician referral [] Code/Alert [x] Routine visit [] Staff referral [] Actively dying [] Patient sleeping [] Family support [] [] Out of room [] Palliative care [] [] Receiving care in room [] Pre-surgical visit [] Trauma [] Long length of stay [] ICU visit [] Other: Relational/Emotional Strength [x] Patient feels connected with others/family/visitors/staff [] Distress [] Loneliness/isolation [] Abandonment Spirituality of Patient [x] Person of [place] [] Attends Shinto of their [place] [x] Believes in Prayer [] Reads Bible or Yazidi materials [] There are Spiritual issues to be addressed Molding Manager Interventions [x] Prayer [x] Active listening x[] Non-anxious presence [] Spiritual/emotional support [] Crisis/trauma care [] Spiritual counseling [] Bereavement support [] Provided bereavement packet [] Provided Bible/devotional materials [] Provided toy/stuffed animal, coloring book to patient or family member [] Provided Communion [] Anointing/[place] [] Salvation [x] Completed spiritual assessment [] Other: Impact on Illness or Injury [] Angry [] Fearful [] Anxious [] Often cries [] Exhaustion [] Unable to work [] Unable to attend taoist [] Unable to walk/stand [] Unable to read [] Unable to drive [] Unable to eat/drink [] Unable to sleep [] Unable to be with family [] Patient intubated [] Other: Summary Time spent with patient 10 min
[2021-12-16] MEDS: sodium chloride 0.9% 1,000 ML 30 ML IV (12:15)
[2021-12-16] MEDS: piperacillin-tazobactam 3.375 GM in sodium chloride 0.9% (plus) 100 ML IV (13:14)
--- NOTE | 2021-12-16 14:34 | SUR.PHASEI ---
1425 PT TO PACU SLEEPY WITH GOOD RESP EFFORT NOTED 8L MASK IN PLACE ABDOMEN LARGE SOFT WITH 4 SITES TO ABDOMEN WITH SKIN GLUE, HOB AT 30 DEGREES, PT OPENS EYES TO VOICE BUT DOES NOT VERBALIZE, IV TO LT HAND #20WITH NS 500ML UP AT KVO RATE. BILAT SCDS ON.
--- NOTE | 2021-12-16 14:36 | SUR.PHASEI ---
1425 ID BAND TO LT WRIST PT ID'D WITH 2 IDENTIFIERS, MONITOR SR NO ECTOPY NOTED.
--- NOTE | 2021-12-16 14:37 | P.OP_ITS ---
Operative Report Date of procedure: December 16, 2021 Pre-op diagnosis: Gallstone pancreatitis Post-op diagnosis: Gallstone pancreatitis Dilated cystic duct Procedure done: Laparoscopic cholecystectomy Specimens removed/disposition: Gallbladder Surgeon: Brenton Walters Anesthesia: General Condition: stable Disposition: PACU Procedure: The patient was taken to the operating room and was intubated under general anesthesia. After the antibiotic had been administered, the abdomen was prepped and draped in a sterile manner. Using a #15 blade, a 1 centimeter infraumb ilical curvilinear incision was made and using an open Lala technique the peritoneal cavity was entered. A 10 millimeter port was placed and 15 millimeters of pneumoperitoneum was created. A 10 millimeter, 30 degrees scope was then introduced. Three 5 millimeter ports were placed in the epigastric, midclavicular and the anterior axillary line two fingerbreadths below the costal margin on the right side under the direct visualization. Ratcheted forceps were introduced into the lateral most port and was used to retract the fundus of the gallbladder cephalad and using forceps the infundibulum of the gallbladder was retracted laterally. Using L-hook cautery the peritoneum overlying the Calot's triangle was opened medially and laterally until the cystic duct and the cystic artery were skeletonized. Cystic duct was dilated. Dissection was carried along the body of the gallbladder and after ensuring critical view of safety, 4 clips applied on the cystic duct and 3 clips applied on the cystic artery and cut leaving, 3 clips on the remaining portion of the duct and 2 clips on the remaining portion of the artery. The rest of the gallbladder was dissected off the liver using L-hook cautery. There was no bleeding or bile leaking noted from the gallbladder fossa and the clips appeared to be in place. An EndoCatch bag was introduced to remove the gallbladder. All the ports were removed under direct visualization and there was no bleeding noted from the port sites. The fascia of the umbilicus was closed using [id number] Vicryl sutures and the subcutaneous tissue was approximated using 3-0 Vicryl sutures. The skin at all four ports were closed using 4-0 Monocryl and Dermabond. A total of 10 millimeters of 0.5% Marcaine was infiltrated around the port sites. The patient was stable throughout the procedure.
[2021-12-16] MEDS: fentaNYL 50 mcg/mL INJ 2mL IVP (14:50)
--- NOTE | 2021-12-16 15:29 | SUR.PHASEI ---
PT TO FLOOR PER CART, PT AWAKE ALERT MOVES SELF TO BED FAMILY AT BEDSIDE, HANDOFF TO NURSE AT BEDSIDE.
[2021-12-16] MEDS: HYDROcodone-acetaminophen 5-325 mg Tablet 1 TAB PO (17:08)
--- NOTE | 2021-12-16 17:19 | PM.DCS ---
Discharge Providers Date of Admission: 12/15/21 05:35 Date of Discharge: December 16, 2021 Attending Provider at Admission: Dagoberto Diego MD Attending Provider at Discharge: Praneeth Guerra Diagnoses at Discharge Discharge Diagnosis (1) Cholelithiasis: Status: Acute (2) Pancreatitis: Status: Acute Reason for Visit Reason for Visit: abd pain Hospital Course Hospital Course Please see patient's H&P, consult notes, progress notes and procedure notes for more details. Discharge diagnoses and problem list Acute cholelithiasis and possible cholecystitis with associated gallstone pancreatitis.? Dr. Walters is consulted.? We appreciate his input.? Pancreatitis has resolved based on the lipase level and pain improvement.? The patient successfully underwent cholecystectomy. Postoperatively doing well and is eager to go home. The pain is well controlled. Patient's condition and discharge plans were discussed with the nursing staff. The patient is instructed to come back to emergency room if she develops any new or similar symptoms. She is instructed to follow-up with the primary care physician for close monitoring of the vital signs and laboratory tests and further adjustments and additional treatments and monitoring as needed. She has elevated LFTs which will need to be monitored. For the blood pressure she is going to be discharged on amlodipine and hydrochlorothiazide. Her electrolytes and renal function will need to be monitored. Hypertensive urgency.? Resolved. Management as above Discharge Data Studies Completed and Pending Completed Studies During Hospitalization Category Date Time Status CT abdomen pelvis w con* [id number] Urgent Cat Scan 12/14/21 23:32 Completed MR MRCP [id number] Urgent MRI 12/15/21 02:54 Completed CV. echo wo/w contrast [id number] Routine Ultrasound 12/15/21 08:11 Completed US gall bladder [id number] Urgent Ultrasound 12/15/21 00:59 Completed Pending at discharge Category Date Time Status Complete Blood Count w/Auto AM LABS Lab 12/17/21 04:00 Ordered Comprehensive Metabolic Panel AM LABS Lab 12/17/21 04:00 Ordered Lipase AM LABS Lab 12/17/21 04:00 Ordered Lipase AM LABS Lab 12/18/21 04:00 Ordered Magnesium AM LABS Lab 12/17/21 04:00 Ordered Pathology: Surgical [PTH] Routine Pth 12/16/21 14:28 Ordered Radiology Impressions Abdomen/Pelvis CT 12/14/21 23:32 IMPRESSION: 1. Many gallstones in the gallbladder. The gallbladder wall is thickened, suggesting cholecystitis. Gallbladder Ultrasound 12/15/21 00:59 IMPRESSION: 1. Cholelithiasis. Cholangiopancreatography MRI 12/15/21 02:54 IMPRESSION: 1. Cholelithiasis with suspicion of acute cholecystitis. 2. No choledocholithiasis identified. Laboratory Results WBC 7.7 10^3/uL (4.0-10.0) 12/16/21 05:37 RBC 4.69 10^6/uL (4.1-5.3) 12/16/21 05:37 Hgb 13.7 g/dL (11.5-15.3) 12/16/21 05:37 Hct 41.2 % (37.0-47.0) 12/16/21 05:37 MCV 87.8 fl (81-99) 12/16/21 05:37 MCH 29.2 pg (28.0-34.0) 12/16/21 05:37 MCHC 33.3 g/dL (30.0-36.0) 12/16/21 05:37 RDW 14.6 % (12.1-15.1) 12/16/21 05:37 Plt Count 154 10^3/cmm (130-400) 12/16/21 05:37 MPV 10.8 fL (7.4-10.4) H 12/16/21 05:37 Neut % (Auto) 66.9 % 12/16/21 05:37 Lymph % (Auto) 20.8 % 12/16/21 05:37 [place] % (Auto) 7.9 % 12/16/21 05:37 Eos % (Auto) 3.5 % 12/16/21 05:37 Baso % (Auto) 0.5 % 12/16/21 05:37 Neut # (Auto) 5.18 10^3/uL (1.8-7.7) 12/16/21 05:37 Lymph # (Auto) 1.6 10^3/uL (0.8-4.8) 12/16/21 05:37 [place] # (Auto) 0.6 10^3/uL (0.2-0.9) 12/16/21 05:37 Eos # (Auto) 0.3 10^3/uL (0.0-0.8) 12/16/21 05:37 Baso # (Auto) 0.0 10^3/uL (0.0-0.1) 12/16/21 05:37 Nucleated RBC % (auto) 0 % 12/16/21 05:37 Nucleated RBCs # 0.0 /100WBC 12/16/21 05:37 Sodium 141 mmol/L (136-145) 12/16/21 05:37 Potassium 3.8 mmol/L (3.5-5.1) 12/16/21 05:37 Chloride 107 mmol/L (98-107) 12/16/21 05:37 Carbon Dioxide 22 mmol/L (22-29) 12/16/21 05:37 Anion Gap 15.8 (5-19) 12/16/21 05:37 BUN 6 mg/dL (8-23) L 12/16/21 05:37 Creatinine 0.6 mg/dL (0.5-0.9) 12/16/21 05:37 GFR Calculation 98.8 mL/min (90-130) 12/16/21 05:37 Glucose 105 mg/dL (65-115) 12/16/21 05:37 POC Glucose 95 mg/dL (70-110) 12/16/21 11:13 Estimat Average Glucose 100 12/15/21 00:20 Hemoglobin A1c 5.1 % (4.0-6.0) 12/15/21 00:20 Calculated Osmolality 290 mOsm/kg (285-295) 12/16/21 05:37 Calcium 8.5 mg/dL (8.5-10.5) 12/16/21 05:37 Magnesium 2.3 mg/dL (1.7-2.3) 12/16/21 05:37 Total Bilirubin 1.0 mg/dL (0.15-1.2) 12/16/21 05:37 AST 229 U/L (0-32) H 12/16/21 05:37 ALT 380 U/L (0-33) H 12/16/21 05:37 Alkaline Phosphatase 156 IU/L (35-105) H 12/16/21 05:37 C-Reactive Protein 16.8 mg/L (0.0-4.9) H 12/16/21 05:37 NT-Pro-B Natriuret Pep 360 pg/mL (0-125) H 12/15/21 00:20 Total Protein 6.3 g/dL (6.6-8.7) L 12/16/21 05:37 Albumin 3.4 g/dL (3.5-5.2) L 12/16/21 05:37 Globulin 2.9 g/dL (1.3-4.6) 12/16/21 05:37 Lipase 38 U/L (13-60) 12/16/21 05:37 Procalcitonin 0.05 ng/mL (0-0.5) 12/15/21 00:20 TSH 4.30 uIU/mL (0.27-4.20) H 12/15/21 00:20 Urine Color Yellow (Yellow) 12/15/21 00:02 Urine Appearance Clear (CLEAR) 12/15/21 00:02 Urine pH 5 (5-7) 12/15/21 00:02 Ur Specific Jackson 1.020 (1.005-1.030) 12/15/21 00:02 Urine Protein Neg (Negative) 12/15/21 00:02 Urine Glucose (UA) Norm (Normal) 12/15/21 00:02 Urine Ketones Negative (Negative) 12/15/21 00:02 Urine Blood Neg (Negative) 12/15/21 00:02 Urine Nitrate Negative (Negative) 12/15/21 00:02 Urine Bilirubin Neg (Negative) 12/15/21 00:02 Urine Urobilinogen 1 mg/dL (Negative) H 12/15/21 00:02 Ur Leukocyte Esterase Negative (Negative) 12/15/21 00:02 Vitals Last Vital Signs Temp 98.2 F 12/16/21 16:30 Pulse 84 12/16/21 16:30 Resp 18 12/16/21 16:30 BP 150/70 12/16/21 16:30 Pulse Ox 90 12/16/21 16:30 Discharge Plan Discharge Patient Disposition: Home Condition: Stable Prescriptions: New hydrocodone-acetaminophen 5-325 mg tablet 1 tab PO Q6H PRN (Reason: pain) Qty: 20 0RF ondansetron HCl 4 mg tablet 4 mg PO Q8H 5 Days Qty: 15 0RF Colace 100 mg capsule 100 mg PO BID Qty: 30 0RF hydrochlorothiazide 12.5 mg capsule 12.5 mg PO DAILY Qty: 30 0RF amlodipine 5 mg tablet 5 mg PO BID Qty: 60 0RF Continued Zyrtec 10 mg Tablet 10 mg PO DAILY 0RF ibuprofen 200 mg Tablet 600 mg PO Q6H PRN (Reason: Pain) 0RF Discharge Orders: Discharge Order (Routine); Ordered 12/16/21 Ordered By: Brenton Walters Other Ambulatory Orders: Comprehensive Metabolic Panel (Routine) Timeframe: 1 Week Facility: [facility] - Location: Lab - Main Lab Ordered By: Praneeth Guerra Referrals: Yosi Blake, [Referring] - (pt will need to call office to schedule appt ) Brenton Walters MD [Physician] - 12/29/21 9:15 am Patient Instructions: Hydrocodone/Acetaminophen (By mouth), Laxative, Stool Softeners (By mouth), Ondansetron (By mouth), Opioid Safety, Post Anesthesia Care Activity Restrictions/Additional Instructions: Diet Advance to normal diet as tolerated, increase fluid intake as much as possible. Activity Avoid strenuous activity for 2 weeks but continue with daily activities including walking as tolerated. Do not lift more than 10 pounds for 2 weeks Return to work/school You can return to work/ school whenever you feel ready as long as you don?t have to lift more than 10 pounds at work. If you have paperwork that needs to be completed for time off from work, please contact my office Driving You can resume driving once you stop using narcotic pain medications, and transition to non-opioid pain medications like Tylenol, Motrin, Aleve, etc. Medications Pain Take opioid pain medications as prescribed and transition to non-opioid pain medications like Tylenol, Motrin, Aleve etc. over the next few days. The goal of the pain medications is to make the pain bearable and not to be pain free since you recently had surgery. Resume all home medications after surgery as per the medication reconciliation list Nausea Nausea is common after surgery, take nausea medications as needed and stay on a liquid bland diet until nausea resolves. Constipation The combination of surgery, anesthesia and pain medications can result in constipation. Take stool softeners as prescribed. If you do not have a bowel movement in 3 days, please take an [id number]-pbmpenx laxative like MiraLAX to address the constipation. Shower It is ok to shower but avoid getting the wound wet for 48 hours after surgery. Do not soak in bathtub, swimming pool or hot tub for 2 weeks. Wound care If glue has been used on your incisions after surgery, the glue on the incision will peel slowly over the next two weeks. The stitches used are dissolvable and will not need to be removed. Do not apply antibiotics or other medications on the incision Problems with the wound: you can develop some redness around the incision from bruising after surgery. If there is increasing pain, redness, tenderness around the incision with or without drainage, please contact my office to rule out an infection. Sometimes the skin at the incisions can separate, resulting in reopening of the wound. Cover the wound with antibiotic cream and sterile dressings and contact my office. Contact physician Call the office at [phone] during office hours or go the Emergency Room ?Fever to 100.4 or greater ?Shaking chills ?Pain that increases over time ?Redness, warmth, or pus draining from incision sites ?Persistent nausea or inability to take in liquids Discharge Attestations Time Spent in Discharge Care*: greater than 30 min Quality Metrics Clinical Quality Measures [ No reported AMI, CVA or VTE this stay] Coding Level of Care Code Acute g [facility] note Diagnoses Cholelithiasis K80.20 Pancreatitis K85.90
--- NOTE | 2021-12-16 17:57 | ANE.PACU2 ---
Inpatient post-anesthesia follow up: Airway intact: Yes Vital signs: Temperature 98.2 F Pulse Rate 84 Respiratory Rate 18 Blood Pressure 150/70 Pulse Oximetry 90 Oxygen Delivery Me thod Nasal Cannula Oxygen Flow Rate 1 Fraction of Inspir ed Oxygen Hydration adequate: Yes Nausea and vomiting: No Pain level: 5 Mental status: Baseline
--- NOTE | 2021-12-16 18:03 | PC.NURSE ---
Discharge education given to patient and spouse at bedside, verbally acknowledges discharge plan.
== END 2021-12-16 18:02 | disposition home or self-care (01) | DRG 417 ==
LOC: ER 23:40 → MEDSURG 12-15 05:52
PROVIDERS: Surgery; Admitting Provider Internal Medicine; Emergency Provider Emergency Medicine; Visit Provider Internal Medicine
PROC: 0FT44ZZ Resection of Gallbladder, Percutaneous Endoscopic Approach (ICD-10-PCS; CPT 47562; principal; 2021-12-16 11:45)
DX: K80.00 Calculus of gallbladder with acute cholecystitis without obstruction (principal); K85.10 Biliary acute pancreatitis without necrosis or infection; Z68.43 Body mass index [BMI] 50.0-59.9, adult; I10 Essential (primary) hypertension; E66.9 Obesity, unspecified; I16.0 Hypertensive urgency
CPT/HCPCS: 36415; 36416; 74177; 74181; 76705; 80048; 80053; 81003; 82962; 83036; 83690; 83735; 83880; 84145; 84443; 85025; 86140; 88304; 93005; 96374; 96375; 96376; 99285; C8929; J0360; J1100; J2060; J2405; J2543; J2704; J2710; J3010; J3490; J7030; Q9956; Q9967

== ENCOUNTER 2021-12-23 08:37 | Outpatient (CLI) | payer MEDICARE, OTHER, SELFPAY ==
[2021-12-23 09:47] LABS: Alanine Aminotransferase 36 U/L (0-33); Albumin Level 3.7 g/dL (3.5-5.2); Alkaline Phosphatase 91 IU/L (35-105); Anion Gap 14.3 (5-19); Aspartate Amino Transferase 20 U/L (0-32); Blood Urea Nitrogen 10 mg/dL (8-23); Calcium 8.1 mg/dL (8.5-10.5); Carbon Dioxide 24 mmol/L (22-29); Chloride 105 mmol/L (98-107); Globulin 3.2 g/dL (1.3-4.6); Glomerular Filtration Rate 98.8 mL/min (90-130); Glucose 104 mg/dL (65-115); Osmolality Calculated 287 mOsm/kg (285-295); Potassium 4.3 mmol/L (3.5-5.1); Sodium 139 mmol/L (136-145); Total Bilirubin 0.6 mg/dL (0.15-1.2); Total Protein 6.9 g/dL (6.6-8.7)
== END 2021-12-23 08:38 | disposition home or self-care (01) ==
LOC: LAB 08:39
PROVIDERS: Visit Provider Internal Medicine
DX: I16.0 Hypertensive urgency (principal); K81.9 Cholecystitis, unspecified
CPT/HCPCS: 36415; 80053

== ENCOUNTER → 2021-12-29 11:13 | Outpatient (BNVA) | payer MEDICARE, OTHER, SELFPAY | PROVIDERS: Visit Provider Surgery | DX: Z98.890 Other specified postprocedural states (principal); Z90.49 Acquired absence of other specified parts of digestive tract ==

== ENCOUNTER → 2023-01-11 09:42 | Outpatient (BNVA) | payer MEDICARE, OTHER, SELFPAY | PROVIDERS: PCP Family Medicine; Visit Provider Family Medicine | DX: I10 Essential (primary) hypertension (principal) | CPT/HCPCS: 80053; 80061; 84443 ==

== ENCOUNTER 2023-02-05 04:49 | Inpatient (IN) | payer MEDICARE, OTHER, SELFPAY ==
[2023-02-05] VITALS (41 sets, daily range): BP systolic 103–174; BP diastolic 54–77; PULSE 67–96; RESP 16–26; TEMP 37.3–37.9; O2SAT 86–97; BMI 45.1
--- NOTE | 2023-02-05 04:51 | ECG_ITS ---
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 Measurements Intervals [place] Rate: 96 P: 52 IL: 150 QRS: -41 QRSD: 97 T: 65 QT: 353 QTc: 447 Interpretive Statements SINUS RHYTHM LEFT AXIS DEVIATION [QRS AXIS < -30] LOW QRS VOLTAGE IN PRECORDIAL LEADS [QRS DEFLECTION < 1.0 mV IN CHEST LEADS] POSSIBLE ANTERIOR MYOCARDIAL INFARCTION , PROBABLY OLD [30 ms Q WAVE IN V3/V4, OR R < 0.2 mV IN V4] Compared to ECG 12/16/2021 07:28:57 T-wave abnormality no longer present Possible ischemia no longer present Myocardial infarct finding still present Electronically Signed On 02-05-2023 14:50:39 CDT by Tonie De La Torre M.D. [email or web address]
--- NOTE | 2023-02-05 04:53 | XRR_ITS ---
PROCEDURE INFORMATION: Exam: XR Chest Exam date and time: 02/05/2023 5:07 AM Age: 72 years old Clinical indication: Shortness of breath; Additional info: SOB TECHNIQUE: Imaging protocol: Radiologic exam of the chest. Views: 1 view. COMPARISON: MR MRCP [id number] 12/15/2021 4:34 AM FINDINGS: Lungs: There is mildly increased lung markings and slight haziness of the lungs, which in the setting of cardiomegaly is suggestive of pulmonary congestion. Pneumonia should be excluded clinically. Pleural spaces: Unremarkable. No pleural effusion. No pneumothorax. Heart/Mediastinum: Stable cardiomediastinal silhouette. Bones/joints: Unremarkable. XR/XR chest 1V portable [id number] IMPRESSION: Imaging findings suggestive of pulmonary congestion. Pneumonia should be excluded clinically.
[2023-02-05 05:04] LABS: Basophils # 0.1 10^3/uL (0.0-0.1); Basophils % 0.3 %; Eosinophils # 0.2 10^3/uL (0.0-0.8); Eosinophils % 0.9 %; Hematocrit 42.8 % (37.0-47.0); Hemoglobin 13.9 g/dL (11.5-15.3); Lymphocytes # 1.1 10^3/uL (0.8-4.8); Lymphocytes % 4.5 %; Mean Corpuscular HGB Conc 32.5 g/dL (30.0-36.0); Mean Corpuscular Hemoglobin 28.1 pg (28.0-34.0); Mean Corpuscular Volume 86.6 fl (81-99); Mean Platelet Volume 10.4 fL (7.4-10.4); Monocytes # 0.4 10^3/uL (0.2-0.9); Monocytes % 1.7 %; Neutrophils # 21.88 10^3/uL (1.8-7.7); Neutrophils % 91.7 %; Nucleated Red Blood Cells % 0 %; Platelet Count 252 10^3/cmm (130-400); Red Blood Count 4.94 10^6/uL (4.1-5.3); Red Cell Distribution Width 15.1 % (12.1-15.1); White Blood Count 23.9 10^3/uL (4.0-10.0)
--- NOTE | 2023-02-05 05:07 | ED_ITS ---
HPI - SOB/Dyspnea General: Chief Complaint: Shortness of Breath/Dyspnea Stated Complaint: dyspnea Time Seen by Provider: 02/05/23 05:05 Source: patient Mode of arrival: ambulatory History of Present Illness: HPI Narrative: 72-year-old female presents emergency room complaining of myalgias arthralgias and fever for the last week progressively worsening. She was found to have an O2 sat of 6 7% in the field by EMS responds well to 6 L by nasal cannula. She has a nonproductive cough no orthopnea. She states over the last week is gotten progressively worse she has been taking Tylenol and ibuprofen for relief of fever muscle aches early on she had some abdominal pain and some loose stools that has resolved. Denies chest pain cough nonproductive. MD elicited complaint: shortness of breath and cough Onset (ago): week(s) (1) Timing: constant Severity: moderate Exacerbating factors: nothing Relieving factors: nothing Associated symptoms: Reports chest congestion, extremity pain, fever(s), myalgia s and nausea; Deny abdominal pain, chest pain, cough, diaphoresis, dizziness, hemoptysis, lightheadedness, orthopnea, palpitations, paresthesias, polydipsia, polyuria, rash, sense of impending doom, syncope or vomiting Treatment prior to arrival: oxygen Review of Systems Const: Reports: fever(s), chills, body aches, change in appetite, fatigue and malaise; Denies: diaphoresis ENMT: Denies: throat pain, ear or mastoid pain, nasal discharge or nasal congestion Card: Denies: chest pain, palpitations, lightheadedness, syncope or orthopnea Resp: Reports: dyspnea, non-productive cough, wheezing and chest congestion; Denies: hemoptysis GI: Reports: nausea; Denies: abdominal pain or vomiting : Denies: flank pain, difficulty voiding, dysuria, urinary frequency or urinary urgency Musc: Reports: extremity pain Skin/Breast: Denies: rash or pruritus Neuro: Denies: headache(s) or dizziness Endo: Denies: polyuria or polydipsia PFS ED PFSH: Medical History Hypertension Surgical History H/O dilation and curettage Status post laparoscopic cholecystectomy (12/16/21) Social History Smoking and tobacco status: never smoked Alcohol intake: never Substance/Drug Use: never Female Reproductive History: Spontaneous abortions: No Physical Exam Const: COMMON NORMALS: no acute distress GENERAL APPEARANCE: cooperative and comfortable NUTRITIONAL APPEARANCE: obese morbidly obese ORIENTATION/CONSCIOUSNESS: Yes awake, Yes oriented to person, Yes oriented to place and Yes oriented to time HENMT: COMMON NORMALS: normocephalic, atraumatic and hearing grossly normal bilaterally HEAD & SCALP: normocephalic and atraumatic Resp: AUSCULTATION: crackles, rhonchi and wheezes Cardio: HEART SOUNDS: Murmur heart sound present systolic Location: left sternal border Intensity: III/ GI: COMMON NORMALS: Soft to palpation and No hepatosplenomegaly present AUSCULTATION: Yes normoactive bowel sounds PALPATION: Yes Soft to palpation, No Tenderness to palpation present (GI), No Guarding due to palpation present (GI) and Yes No hepatosplenomegaly present Extremity: COMMON NORMALS: normal to inspection, capillary refill normal, no clubbing, cyanosis or edema, no calf tenderness and no pedal edema Neuro: SENSORIUM/ORIENTATION: Yes oriented to person, Yes oriented to place and Yes oriented to time Skin: COMMON NORMALS: no rashes or lesions noted GENERAL SKIN EXAM: no rashes or lesions noted Course Vital Signs: Vital signs: Vital Signs Temperature 99.3 F 02/05/23 04:49 Pulse Rate 76 02/05/23 10:34 Respiratory Rate 18 02/05/23 10:34 Blood Pressure 128/55 02/05/23 09:30 Pulse Oximetry 96 02/05/23 10:34 Oxygen Delivery Me thod Nasal Cannula 02/05/23 10:34 Oxygen Flow Rate 5 02/05/23 10:34 MDM - SOB/Dyspnea Medical Decision Making Acute sigmoid diverticulitis was also some question of some congestive heart failure. Patient has some valvular disease as well as some pulmonary hypertension she is not requiring of her amount of oxygen which she has not in the past. Tried to titrate up unable to do so. Laboratory test reviewed initially gave Levaquin and then added Flagyl. Patient will need further evaluate reevaluation for heart failure as well as antibiotics for the diverticulitis given her significant oxygen need will admit discussed with hospitalist orders written Medical Records I reviewed the patient's medical records. Lab Data I reviewed the patient's lab results. 02/05/23 04:56 02/05/23 06:13 Labs/Radiology: Radiology Impressions Chest X-Ray 02/05/23 04:53 IMPRESSION: Imaging findings suggestive of pulmonary congestion. Pneumonia should be excluded clinically. Abdomen/Pelvis CT 02/05/23 05:44 IMPRESSION: Imaging findings of acute sigmoid diverticulitis. ADDENDUM: 02/05/23 0642 IMPRESSION: 1. Acute sigmoid diverticulitis. 2. Imaging findings of mild pulmonary edema with small bilateral pleural effusions. Laboratory Results WBC 23.9 10^3/uL (4.0-10.0) H 02/05/23 04:56 RBC 4.94 10^6/uL (4.1-5.3) 02/05/23 04:56 Hgb 13.9 g/dL (11.5-15.3) 02/05/23 04:56 Hct 42.8 % (37.0-47.0) 02/05/23 04:56 MCV 86.6 fl (81-99) 02/05/23 04:56 MCH 28.1 pg (28.0-34.0) 02/05/23 04:56 MCHC 32.5 g/dL (30.0-36.0) 02/05/23 04:56 RDW 15.1 % (12.1-15.1) 02/05/23 04:56 Plt Count 252 10^3/cmm (130-400) 02/05/23 04:56 MPV 10.4 fL (7.4-10.4) 02/05/23 04:56 Neut % (Auto) 91.7 % 02/05/23 04:56 Lymph % (Auto) 4.5 % 02/05/23 04:56 [place] % (Auto) 1.7 % 02/05/23 04:56 Eos % (Auto) 0.9 % 02/05/23 04:56 Baso % (Auto) 0.3 % 02/05/23 04:56 Neut # (Auto) 21.88 10^3/uL (1.8-7.7) H 02/05/23 04:56 Lymph # (Auto) 1.1 10^3/uL (0.8-4.8) 02/05/23 04:56 [place] # (Auto) 0.4 10^3/uL (0.2-0.9) 02/05/23 04:56 Eos # (Auto) 0.2 10^3/uL (0.0-0.8) 02/05/23 04:56 Baso # (Auto) 0.1 10^3/uL (0.0-0.1) 02/05/23 04:56 Nucleated RBC % (auto) 0 % 02/05/23 04:56 Nucleated RBCs # 0.0 /100WBC 02/05/23 04:56 Specimen Type Arterial 02/05/23 05:30 Sample Site Radial, right 02/05/23 05:30 ABG pH 7.46 (7.35-7.45) H 02/05/23 05:30 ABG pCO2 35.7 mmHg (35-45) 02/05/23 05:30 ABG pO2 62.5 mmHg (80.0-100.0) L 02/05/23 05:30 ABG HCO3 25.6 mmol/L (22-26) 02/05/23 05:30 ABG Base Excess 2.0 mmol/L (-2.0-2.0) 02/05/23 05:30 Basilio Test Pos 02/05/23 05:30 Hematocrit 41.9 % (37-47) 02/05/23 05:30 Hgb O2 Saturation 92.0 % (95-100) L 02/05/23 05:30 Carboxyhemoglobin 1.2 %THgb (0.4-20.1) 02/05/23 05:30 Methemoglobin 0.2 % (0.4-1.5) L 02/05/23 05:30 Total Hemoglobin 13.7 g/dL (12-16) 02/05/23 05:30 O2 Delivery Device Nc 02/05/23 05:30 O2 Liters/Min 5.0 % 02/05/23 05:30 Public Relations Intern ID [email or web address] 02/05/23 05:30 Sodium 131 mmol/L (136-145) L 02/05/23 06:13 Potassium 3.7 mmol/L (3.5-5.1) 02/05/23 06:13 Chloride 98 mmol/L (98-107) 02/05/23 06:13 Carbon Dioxide 23 mmol/L (22-29) 02/05/23 06:13 Anion Gap 13.7 (5-19) 02/05/23 06:13 BUN 8 mg/dL (8-23) 02/05/23 06:13 Creatinine 0.6 mg/dL (0.5-0.9) 02/05/23 06:13 GFR Calculation Not Reportable 02/05/23 06:13 Glucose 119 mg/dL (65-115) H 02/05/23 06:13 Calculated Osmolality 271 mOsm/kg (285-295) L 02/05/23 06:13 Lactic Acid 1.5 mmol/L (0.5-2.2) 02/05/23 05:10 Lactate Cancelled 02/05/23 05:10 Calcium 7.9 mg/dL (8.5-10.5) L 02/05/23 06:13 Total Bilirubin 0.8 mg/dL (0.15-1.2) 02/05/23 06:13 AST 24 U/L (0-32) 02/05/23 06:13 ALT 23 U/L (0-33) 02/05/23 06:13 Alkaline Phosphatase 145 U/L (35-105) H 02/05/23 06:13 NT-Pro-B Natriuret Pep 1933 pg/mL (0-125) H 02/05/23 06:13 Total Protein 6.8 g/dL (6.6-8.7) 02/05/23 06:13 Albumin 3.3 g/dL (3.5-5.2) L 02/05/23 06:13 Globulin 3.5 g/dL (1.3-4.6) 02/05/23 06:13 Lipase 22 U/L (13-60) 02/05/23 04:56 Serum Ketones Negative (Negative) 02/05/23 04:56 Influenza Type A Ag negative (Negative) 02/05/23 05:19 Influenza Type B Ag negative (Negative) 02/05/23 05:19 Discharge Plan Discharge Patient Disposition: Admitted As Inpatient Admit Provider: Aquiles Alvarez Clinical Impression: Sigmoid diverticulitis, Congestive heart failure (CHF) Condition: Stable Coding Level of Care Code ED [employer] Manager for Neymar Byrd
[2023-02-05] MEDS: acetaminophen 500 mg Tablet 1000 MG PO (05:10)
[2023-02-05 05:31] LABS: Ketone (Acetest) Serum Negative (Negative)
[2023-02-05 05:33] LABS: Lactic Sepsis W/Reflex 1.5 mmol/L (0.5-2.2)
[2023-02-05 05:40] LABS: ABG PCO2 35.7 mmHg (35-45); ABG PH Result 7.46 (7.35-7.45); Arterial Blood Gas Hematocrit 41.9 % (37-47); Blood Gas Allen Test Pos; Blood Gas Sample Site Radial, right; Blood Gas Sample Type Arterial; Carboxyhemoglobin 1.2 %THgb (0.4-20.1); HCO3 ABG 25.6 mmol/L (22-26); Methemoglobin 0.2 % (0.4-1.5); Oxygen Device NC; PO2 ABG 62.5 mmHg (80.0-100.0); Total Hemoglobin 13.7 g/dL (12-16)
[2023-02-05 05:43] LABS: Lipase 22 U/L (13-60)
--- NOTE | 2023-02-05 05:44 | CTR_ITS ---
PROCEDURE INFORMATION: Exam: CT Abdomen And Pelvis Without Contrast Exam date and time: 02/05/2023 5:49 AM Age: 72 years old Clinical indication: Abdominal pain; Prior surgery; Surgery date: 6+ months; Surgery type: Gb TECHNIQUE: Imaging protocol: Computed tomography of the abdomen and pelvis without contrast. Radiation optimization: All CT scans at this facility use at least one of these dose optimization techniques: automated exposure control; mA and/or kV adjustment per patient size (includes targeted exams where dose is matched to clinical indication); or iterative reconstruction. REPORTING DATA: Count of CT and Cardiac NM exams in prior 12 months: This patient has received 0 known CTs and 0 known cardiac nuclear medicine studies in the 12 months prior to the current study. COMPARISON: MR MRCP [id number] 12/15/2021 4:34 AM RADIATION DOSE METRICS: Total DLP (mGy-cm): 1060.23 FINDINGS: Lungs: There is slight mosaic pattern of attenuation of the lungs, in association with paraseptal thickening and small bilateral pleural effusions, which in the setting of cardiomegaly is consistent with pulmonary edema. Compressive bilateral atelectasis noted. Pneumonia should be excluded clinically. No pneumothorax. Heart: Mildly enlarged heart. Coronary atherosclerotic calcifications seen. Trace pericardial effusion noted. Liver: The liver is mild diffuse decreased in density, compatible with hepatic steatosis. No discrete mass lesion identified. Gallbladder and bile ducts: The gallbladder has been surgically removed. Pancreas: Normal. No ductal dilation. Spleen: Normal. No splenomegaly. Adrenal glands: Normal. No mass. Kidneys and ureters: Normal. No hydronephrosis. Stomach and bowel: There are multiple diverticuli in the sigmoid colon, in association with wall thickening and stranding of the pericolic fat, consistent with acute diverticulitis. No evidence of free air or fluid collection to suggest perforation. Appendix: No evidence of appendicitis. Intraperitoneal space: See Stomach and bowel finding. Vasculature: Mild diffuse atherosclerotic disease is present. Lymph nodes: Unremarkable. No enlarged lymph nodes. Urinary bladder: Unremarkable as visualized. Reproductive: Unremarkable as visualized. Bones/joints: Degenerative changes of the spine seen. Soft tissues: A small fat containing umbilical hernia is present. CT/CT abdomen pelvis wo con [id number] IMPRESSION: Imaging findings of acute sigmoid diverticulitis.
[2023-02-05 05:52] LABS: Influenza A by IFA negative (Negative); Influenza B by IFA negative (Negative)
[2023-02-05] MEDS: levofloxacin-dextrose 5 % 750 MG/150 ML PREMIX 100 MG IV (06:04)
[2023-02-05 06:45] LABS: Alanine Aminotransferase 23 U/L (0-33); Albumin Level 3.3 g/dL (3.5-5.2); Alkaline Phosphatase 145 U/L (35-105); Aspartate Amino Transferase 24 U/L (0-32); Blood Urea Nitrogen 8 mg/dL (8-23); Calcium 7.9 mg/dL (8.5-10.5); Carbon Dioxide 23 mmol/L (22-29); Chloride 98 mmol/L (98-107); Creatinine Clr Calc Pharmacy 76.2397; Globulin 3.5 g/dL (1.3-4.6); Glucose 119 mg/dL (65-115); NT Pro B Type Natriuretic Pept 1933 pg/mL (0-125); Osmolality Calculated 271 mOsm/kg (285-295); Sodium 131 mmol/L (136-145); Total Bilirubin 0.8 mg/dL (0.15-1.2); Total Protein 6.8 g/dL (6.6-8.7)
[2023-02-05 06:59] LABS: Anion Gap 13.7 (5-19); Potassium 3.7 mmol/L (3.5-5.1)
[2023-02-05] MEDS: metroNIDAZOLE IV 500 MG/100 ML PREMIX 100 MG IV ×3 (07:32→22:39)
--- NOTE | 2023-02-05 07:37 | P.HP_ITS ---
Providers/Chief Complaint Admitting Physician: Aquiles Alvarez MD Primary Care Provider: Romeo Patterson DO Chief Complaint: dyspnea History of Present Illness Dmitriy Henriquez is a 72 year old female with a past medical history significant for hypertension, heart failure with preserved ejection fraction, and cholecystectomy who presented to the emergency department complaining of ebony rtness of breath for the week. Endorses associated symptoms of non-productive cough, abdominal pains, myalgias, fevers, nausea, and loss of appetite. She reports she has been taking Tylenol and ibuprofen with minimal relief. She notes she does have some shortness of breath at baseline. Denies other alleviating or aggravating factors. Of note, patient was diagnosed in 2021 with CHF during her last admission for acute cholecystitis. EMS found patient to be hypoxic requiring 6 liters of oxygen. Patient denies prior home oxygen needs. Imaging also revealed acute diverticulitis. Patient denies prior history of diverticulitis or diverticulosis. Denies family history of either. Endorses strong family history of malignancy, but is unsure of type. Review of Systems Narrative: A complete review of systems was obtained and negative except for those listed in HPI. Medications/Allergies Home Medications Medication Instructions Recorded Confirmed Last Taken Type cetirizine 10 mg tablet (Zyrtec) 10 mg PO DAILY 12/15/21 02/05/23 02/04/23 History ibuprofen 200 mg tablet 600 mg PO Q6H PRN Pain 12/15/21 02/05/23 Unknown History docusate sodium 100 mg capsule 100 mg PO BID #30 caps 12/16/21 02/05/23 Unknown Rx (Colace) amlodipine 5 mg tablet 5 mg PO DAILY 02/05/23 02/05/23 02/04/23 History ascorbic acid (vitamin C) 250 mg 250 mg PO DAILY 02/05/23 02/05/23 02/04/23 History tablet (Vitamin C) cranberry 400 mg capsule 400 mg PO DAILY 02/05/23 02/05/23 02/04/23 History Allergies Allergy/AdvReac Type Severity Reaction Status Date / Time formaldehyde Allergy Unknown Verified 02/05/23 07:28 grass pollen Allergy ALGY-Sneezi Verified 02/05/23 07:28 ng PFSH Acute PFSH: Medical History (Updated 02/05/23 @ 16:05 by Aquiles Alvarez MD) Establishing care with new doctor, encounter for Hypertension Surgical History H/O dilation and curettage Status post laparoscopic cholecystectomy (12/16/21) Family History Father Heart disease Social History Smoking and tobacco status: never smoked Alcohol intake: never Substance/Drug Use: never Female Reproductive History: Spontaneous abortions: No Vitals/I&O/Wt Last Vital Signs Temp 99.3 F 02/05/23 04:49 Pulse 85 02/05/23 06:02 Resp 16 02/05/23 06:02 BP 103/66 02/05/23 06:02 Pulse Ox 93 02/05/23 06:02 O2 Del Method Nasal Cannula 02/05/23 04:49 O2 Flow Rate 6 02/05/23 04:49 02/04/23 02/05/23 02/05/23 22:59 06:59 14:59 Intake Total 150 / 150 Balance 150 / 150 Weight last 48 hrs Weight 112.037 kg Physical Exam Narrative: General: Patient is awake. Appears ill. Head: Normocephalic. Atraumatic. EOMI. Neck: No JVD. Cardiovascular: RRR. No gallops. No murmurs. Lungs: Bilateral crackles and wheezing is present. No rales or rhonchi. On nasal canula support. Skin: No jaundice. No rashes. Abdomen: TTP in lower quadrants. Hypoactive bowel sounds. No guarding. Extremities: No cyanosis or clubbing. Musculoskeletal: Normal muscular development. Neurological: No myoclonus. Moves all 4 extremities. Data 02/05/23 04:56 02/05/23 06:13 Micro: Microbiology 02/05/23 05:00 Blood Culture - Preliminary Blood SPECIMEN COLLECTED 02/05/23 05:10 Blood Culture - Preliminary Blood SPECIMEN COLLECTED A&P Assessment and plan (1) Sigmoid diverticulitis: Blood cultures x2 Clear liquid diet, advance as tolerated Start cipro and metronidazole Analgesics as needed Antiemetics as needed No risk factors for C diff (2) Congestive heart failure (CHF): Acute on chronic diastolic heart failure with preserved ejection fraction Acute hypoxic respiratory failure secondary to above Prior echo reviewed from 2021 Repeat echo ordered Start IV Lasix Strict I&Os Daily weights (3) Essential hypertension: Hold Norvasc to allow further diuresis Monitor blood pressure closely Plan DVT ppx: Lovenox Code Status: Full Code Attestations Medical Necessity Statement*: Patient presents with shortness of breath among multiple other complaints, found to have sigmoidal diverticulitis and CHF exacerbation with acute hypoxic respiratory failure with expected hospitalization to cross two midnights. Coding Level of Care Code Acute Code for [facility] Diagnoses Sigmoid diverticulitis K57.32 Congestive heart failure (CHF) I50.9 Essential hypertension I10
[2023-02-05 08:14] LABS: Bilirubin Urine 1+ (Negative); Blood Urine Neg (Negative); Glucose Urine UA Norm (Normal); Ketones Urine 1+ (Negative); Leukocyte Esterase Urine Trace (Negative); Nitrate Urine Negative (Negative); Protein Urine Trace (Negative); Urine Appearance Clear (CLEAR); Urine Color Orange (Yellow); Urobilinogen Urine 4 mg/dL (Negative); pH Urine 5 (5-7)
[2023-02-05 08:15] LABS: Add Urine Culture? No; Add Urine Microscopic? YES; Bacteria Urine 1+ /hpf; Coarse Granular Casts Urine 0-4 /lpf; Mucus Urine 1+ /hpf; Squamous Epithelial Cell Urine 0-4 /hpf (0-5)
--- NOTE | 2023-02-05 12:08 | USCV_ITS ---
Dmitriy Henriquez Age: 72 Gender: F : 1950 Exam Date: 02/05/2023 14:41 Ordering Phys: Aquiles Alvarez MD Technologist: ÁLVARO Exam Location: [facility] [place] Indication: hf BP: / HR: 72 Rhythm: Sinus Technical Quality: Adequate MEASUREMENTS (Male / Female) Normal Values 2D ECHO LV Diastolic Diameter PLAX 3.6 cm 4.2 - 5.9 / 3.9 - 5.3 cm LV Systolic Diameter PLAX 2.7 cm IVS Diastolic Thickness 1.1 cm 0.6 - 1.0 / 0.6 - 0.9 cm IVS Systolic Thickness 1.6 cm LVPW Diastolic Thickness 1.3 cm 0.6 - 1.0 / 0.6 - 0.9 cm LVPW Systolic Thickness 1.7 cm LVOT Diameter 2.0 cm LV Ejection Fraction 2D Teich 50.0 % LV Ejection Fraction MOD 2C 72.5 % LV Ejection Fraction 2C AL 72.9 % LA Diameter 4.2 cm M-MODE Aortic Annulus Diameter 2.7 cm LA Ao Ratio MM 1.7 MV E Point Septal Separation 0.3 cm DOPPLER AV Peak Velocity 240.0 cm/s LVOT Peak Velocity 122.0 cm/s AV Area Cont Eq vti 1.8 cm squared AV Area Cont Eq pk 1.6 cm squared MV Area PHT 3.3 cm squared Mitral E to A Ratio 1.5 MV E' Velocity 63.0 cm/s Mitral E to MV E' Ratio 11.4 Mitral E to LV E' Lateral Ratio 9.7 Mitral E to LV E' Septal Ratio 14.1 TR Peak Velocity 257.0 cm/s TR Peak Gradient 26.4 mmHg TV Peak E Velocity 53.0 cm/s Right Atrial Pressure 3.0 mmHg Pulmonary Artery Systolic Pressu 29.4 mmHg PV Peak Velocity 167.0 cm/s FINDINGS Left Ventricle Normal left ventricular cavity size. Grossly normal left ventricular systolic function. This study is inadequate for estimation of regional wall motion abnormality. Right Ventricle Normal right ventricular size and systolic function. Right Atrium Normal right atrial size. Left Atrium Mildly increased left atrial size. Mitral Valve Mitral annular calcification. Thickened mitral valve. No mitral valve stenosis. Aortic Valve Aortic valve not well visualized. There seems to be possibly mild to moderate aortic stenosis visually and by continuity equation. Moderate aortic valve regurgitation. Tricuspid Valve Tricuspid valve not well visualized. Pulmonic Valve Pulmonic valve not well visualized. No pulmonary valve stenosis. Pericardium No pericardial effusion. Aorta Normal sized aortic root. IVC Inferior vena cava not visualized. CONCLUSIONS 1. Normal left ventricular cavity size. Grossly normal left ventricular systolic function. This study is inadequate for estimation of regional wall motion abnormality. 2. . There seems to be possibly mild to moderate aortic stenosis visually and by continuity equation. Moderate aortic valve regurgitation. 3. Direct comparison to previous study is not possible. Tonie De La Torre MD (Electronically Signed) Final Date: 05 February 2023 20:50 S
[2023-02-05] MEDS: acetaminophen 325 mg Tablet 650 MG PO ×2 (15:25→20:20)
[2023-02-05] MEDS: ciprofloxacin 400 MG/200 ML PREMIX 200 MG IV (17:52)
[2023-02-05] MEDS: albuterol 2.5 mg/3 mL Neb INHALATION ×2 (18:18→22:18)
[2023-02-05] MEDS: enoxaparin 40 mg/0.4 mL Syringe SUBCUT (20:20)
[2023-02-05] MEDS: lanolin oint 7 gm 1 APPLIC TOPICAL (21:41)
[2023-02-06] VITALS (55 sets, daily range): BP systolic 110–170; BP diastolic 62–95; PULSE 60–85; RESP 18–33; TEMP 36.6–37.1; O2SAT 84–96
[2023-02-06 05:40] LABS: Basophils % 0.2 %; Eosinophils # 0.1 10^3/uL (0.0-0.8); Eosinophils % 0.3 %; Hematocrit 41.3 % (37.0-47.0); Hemoglobin 13.1 g/dL (11.5-15.3); Lymphocytes # 1.3 10^3/uL (0.8-4.8); Mean Corpuscular HGB Conc 31.7 g/dL (30.0-36.0); Mean Corpuscular Hemoglobin 28.2 pg (28.0-34.0); Mean Corpuscular Volume 88.8 fl (81-99); Monocytes % 5.1 %; Neutrophils # 16.15 10^3/uL (1.8-7.7); Neutrophils % 86.8 %; Nucleated Red Blood Cells % 0 %; Platelet Count 250 10^3/cmm (130-400); Red Blood Count 4.65 10^6/uL (4.1-5.3); Red Cell Distribution Width 15.4 % (12.1-15.1); White Blood Count 18.6 10^3/uL (4.0-10.0)
[2023-02-06 06:09] LABS: Anion Gap 13.8 (5-19); Blood Urea Nitrogen 7 mg/dL (8-23); Calcium 8.2 mg/dL (8.5-10.5); Carbon Dioxide 23 mmol/L (22-29); Chloride 101 mmol/L (98-107); Glucose 104 mg/dL (65-115); Magnesium 2.2 mg/dL (1.7-2.3); Osmolality Calculated 276 mOsm/kg (285-295); Phosphorus 3.1 mg/dL (2.5-4.5); Potassium 3.8 mmol/L (3.5-5.1); Sodium 134 mmol/L (136-145)
[2023-02-06 06:12] LABS: Creatinine Clr Calc Pharmacy 76.2397
[2023-02-06] MEDS: ciprofloxacin 400 MG/200 ML PREMIX 200 MG IV ×2 (06:19→17:25)
[2023-02-06] MEDS: metroNIDAZOLE IV 500 MG/100 ML PREMIX 100 MG IV ×3 (07:28→22:41)
[2023-02-06] MEDS: albuterol 2.5 mg/3 mL Neb INHALATION ×2 (08:45→14:04)
[2023-02-06] MEDS: cetirizine 10 mg Tablet PO (09:17)
[2023-02-06] MEDS: FUROsemide 10 mg/mL SDV 2mL 20 MG IVP ×2 (09:34→17:25)
[2023-02-06] MEDS: pantoprazole DR 40 mg Tablet PO ×2 (12:47→17:25)
--- NOTE | 2023-02-06 13:19 | PC.NURSE ---
Hat placed in patients room this morning but output after lasix has been only about 230ml since Lasix was given this morning. Patient states that when she tires to drink she can only take about 3 sips before she says it comes back up
--- NOTE | 2023-02-06 14:29 | PC.NURSE ---
patient complaining of pain in the right lower lung. Physician notified.
--- NOTE | 2023-02-06 15:13 | PC.NURSE ---
Patient bladder scanned at 1510 with a result of 122. Patient now currently sitting in chair.
--- NOTE | 2023-02-06 17:33 | PM.PN ---
Subjective Subjective: She is having some epigastric discomfort. Some nausea, no vomiting. Overall feels she is improving. Breathing easier. Denies chest pain. States she takes quite a bit of ibuprofen at home. Vitals/I&O/Wt Last Vital Signs Temp 98.1 F 02/06/23 16:30 Pulse 75 02/06/23 17:10 Resp 20 H 02/06/23 14:05 BP 139/70 02/06/23 16:30 Pulse Ox 95 02/06/23 16:30 O2 Del Method Nasal Cannula 02/06/23 14:05 O2 Flow Rate 5 02/06/23 14:05 02/06/23 02/06/23 02/06/23 06:59 14:59 22:59 Intake Total 100 / 910 540 / 540 Output Total 230 / 230 300 / 530 Balance 100 / 460 310 / 310 -300 / 10 Weight last 48 hrs Weight 111.085 kg Weight 112.037 kg Physical Exam Narrative: at bedside Const: COMMON NORMALS: patient oriented x3 and alert GENERAL APPEARANCE: cooperative ORIENTATION/CONSCIOUSNESS: Yes awake HENMT: COMMON NORMALS: oropharynx normal Neck/C-Spine: COMMON NORMALS: no JVD Resp: COMMON NORMALS: normal respiratory effort and clear to auscultation bilaterally AUSCULTATION: clear to auscultation bilaterally Cardio: COMMON NORMALS: no JVD, regular rhythm, S1 normal heart sound present, S2 normal heart sound present and No murmurs present (Cardio) RHYTHM: regular rhythm HEART SOUNDS: S1 normal heart sound present and S2 normal heart sound present GI: COMMON NORMALS: Normal to inspection, nondistended, normoactive bowel sounds present and Soft to palpation PALPATION: Yes Soft to palpation Extremity: COMMON NORMALS: no joint enlargement GENERAL: Yes edema (Trace) Neuro: COMMON NORMALS: patient oriented x3 and moves all extremities SENSORIUM/ORIENTATION: Yes alert Data 02/06/23 05:09 02/06/23 05:09 Micro: Microbiology 02/05/23 05:00 Blood Culture - Preliminary Blood NEGATIVE TO DATE 02/05/23 05:10 Blood Culture - Preliminary Blood NEGATIVE TO DATE A&P Assessment and plan (1) Sigmoid diverticulitis: Continue Cipro and Flagyl. Prelim blood cultures negative. Tolerating clear liquid far. COVID PCR is pending. Leukocytosis noted 18.6, neutrophils 16.15, improved down from 23.9. Analgesics as needed Antiemetics as needed No risk factors for C diff (2) Congestive heart failure (CHF): Seems she may not have received her Lasix yesterday. Given 20 mg today, did not produce very much urine, bladder scan obtained 122 mL only. Repeat additional 20 mg IV x1 today. May need to increase dose, please reassess tomorrow. Oxygenation with some improvement, subjectively feeling better, down to 5 L nasal cannula. Not normally on oxygen. Echocardiogram appreciated, discussed with her, Normal EF, possibly mild to moderate aortic stenosis, moderate AVR. Acute on chronic diastolic heart failure with preserved ejection fraction Repeat chest x-ray on my interpretation working slightly better. Still cardiomegaly, appears with some improvement in congestive changes. Acute hypoxic respiratory failure secondary to above with only minimal improvement, but now worsening. Needs further diuresis. Sodium 134, potassium 3.8. Magnesium noted 2.2. Repeat chemistries requested. Monitor electrolytes with diuresis. At risk of electrolyte abnormality, renal function pulmonary. Monitor on telemetry. Strict I&Os Add Daily weights Symptoms otherwise not suggestive of pneumonia. COVID PCR pending. So far has not improved a whole lot, but has not worsened, and slight improvement in oxygenation. Continue on CSU. (3) Essential hypertension: Hold Norvasc to allow further diuresis Monitor blood pressure closely Degree of aortic stenosis, however, has been maintaining blood pressure so far. (4) Epigastric pain: PPI. States takes quite a bit of ibuprofen at home. Possible gastritis versus PUD. Consider follow-up endoscopy. Will need to DC ibuprofen. Discussed with her and her to avoid NSAIDs. Plan DVT ppx: Lovenox Code Status: Full Code Attestations Medical Necessity Statement*: Continue mission for assessment management of respiratory failure, acutely decompensated diastolic CHF, NSAID gastritis. Diagnoses Sigmoid diverticulitis K57.32 Congestive heart failure (CHF) I50.9 Essential hypertension I10 Epigastric pain R10.13
--- NOTE | 2023-02-06 17:47 | XRR_ITS ---
PROCEDURE INFORMATION: Exam: XR Chest Exam date and time: 02/06/2023 6:04 PM Age: 72 years old Clinical indication: Other: Hypoxia; Additional info: Hypox resp fail TECHNIQUE: Imaging protocol: Radiologic exam of the chest. Views: 1 view. COMPARISON: CR (CHEST, ) 02/05/2023 5:07 AM FINDINGS: Lungs: Right lateral mid lung atelectasis. Pleural spaces: Unremarkable. No pleural effusion. No pneumothorax. Heart/Mediastinum: Cardiomegaly. Bones/joints: Unremarkable. XR/XR chest 1V portable [id number] IMPRESSION: 1. Cardiomegaly. 2. Right lateral mid lung atelectasis.
[2023-02-06] MEDS: enoxaparin 40 mg/0.4 mL Syringe SUBCUT (20:28)
[2023-02-07] VITALS (45 sets, daily range): BP systolic 139–151; BP diastolic 69–78; PULSE 58–91; RESP 15–35; TEMP 36.5–36.7; O2SAT 76–97
[2023-02-07 02:40] LABS: Basophils % 0.2 %; Eosinophils # 0.3 10^3/uL (0.0-0.8); Eosinophils % 3.2 %; Hematocrit 37.9 % (37.0-47.0); Hemoglobin 11.9 g/dL (11.5-15.3); Lymphocytes # 1.8 10^3/uL (0.8-4.8); Lymphocytes % 17.2 %; Mean Corpuscular HGB Conc 31.4 g/dL (30.0-36.0); Mean Corpuscular Hemoglobin 27.7 pg (28.0-34.0); Mean Corpuscular Volume 88.1 fl (81-99); Mean Platelet Volume 9.9 fL (7.4-10.4); Monocytes % 9.6 %; Neutrophils # 7.27 10^3/uL (1.8-7.7); Neutrophils % 69.4 %; Nucleated Red Blood Cells % 0 %; Platelet Count 247 10^3/cmm (130-400); Red Cell Distribution Width 15.3 % (12.1-15.1); White Blood Count 10.5 10^3/uL (4.0-10.0)
[2023-02-07 02:57] LABS: Magnesium 2.2 mg/dL (1.7-2.3)
[2023-02-07 02:58] LABS: Anion Gap 11.4 (5-19); Blood Urea Nitrogen 7 mg/dL (8-23); Carbon Dioxide 28 mmol/L (22-29); Chloride 102 mmol/L (98-107); Glucose 93 mg/dL (65-115); Osmolality Calculated 284 mOsm/kg (285-295); Potassium 3.4 mmol/L (3.5-5.1); Sodium 138 mmol/L (136-145)
[2023-02-07] MEDS: ciprofloxacin 400 MG/200 ML PREMIX 200 MG IV (05:17)
--- NOTE | 2023-02-07 07:14 | P.PN_ITS ---
Subjective Subjective: This morning patient is stating that he is experiencing mild dyspnea on exertion I have turned on his oxygen down to 1.5 L he saturating 93% Afebrile hemodynamic stable No overnight events Vitals/I&O/Wt Last Vital Signs Temp 98.0 F 02/07/23 07:03 Pulse 67 02/07/23 07:03 Resp 25 H 02/07/23 07:03 BP 139/71 02/07/23 07:03 Pulse Ox 89 L 02/07/23 07:03 O2 Del Method Room Air 02/07/23 07:03 O2 Flow Rate 3 02/07/23 04:00 FiO2 4 02/06/23 20:00 02/06/23 02/07/23 02/07/23 22:59 06:59 14:59 Intake Total 300 / 840 950 / 1790 Output Total 900 / 1130 550 / 1680 Balance -600 / -290 400 / 110 Weight last 48 hrs Weight 108.817 kg Weight 111.085 kg Physical Exam Narrative: mild fluid overload 1+ edema of legs Currently on 1.5 L nasal cannula Audible wheezing present No respiratory distress GCS 15 Nonfocal neuro exam Abdomen soft Cooperative and pleasant Data 02/07/23 02:20 02/07/23 02:20 Micro: Microbiology 02/05/23 05:00 Blood Culture - Preliminary Blood NEGATIVE TO DATE 02/05/23 05:10 Blood Culture - Preliminary Blood NEGATIVE TO DATE A&P Assessment and plan (1) Epigastric pain: (2) Sigmoid diverticulitis: (3) Congestive heart failure (CHF): (4) Essential hypertension: (5) Elevated TSH: (6) Hypokalemia: (7) Exertional dyspnea: Plan Acute preserved ejection fraction heart failure exacerbation Currently on IV Lasix getting 40 mg Clinical signs of fluid overload improving Acute hypoxia related to CHF exacerbation Mild wheezing noted: Add budesonide Oxygen weaned down to 1.5 L Does not use oxygen at home Wean oxygen to room air Abnormal TSH check free T4 level Diverticulitis: Patient has been afebrile no significant leukocytosis I will change his antibiotics to p.o. regimen discontinue IV antibiotics at this point Disposition: Home most likely next 24 hours we will request physical therapy Patient lives with his at home Full code Cardiac fluid restricted diet 1200 mL fluid restriction Hypokalemia: Replete Chest x-ray reviewed: Showing signs of mild CHF exacerbation Attestations 2 Medical Necessity Statement*: Anticipating discharge tomorrow: Home Diagnoses Epigastric pain R10.13 Sigmoid diverticulitis K57.32 Congestive heart failure (CHF) I50.9 Essential hypertension I10 Elevated TSH R79.89 Hypokalemia E87.6 Exertional dyspnea R06.09
[2023-02-07] MEDS: FUROsemide 10 mg/mL SDV 4mL 40 MG IVP (07:24)
[2023-02-07] MEDS: potassium chloride ER 20 mEq Tablet 40 MEQ PO (07:24)
[2023-02-07 07:57] LABS: Free T4 Free Thyroxine 1.51 ng/dL (0.82-1.77)
[2023-02-07] MEDS: budesonide 0.5 mg/2 mL Neb INHALATION ×2 (08:33→20:10)
[2023-02-07] MEDS: albuterol 2.5 mg/3 mL Neb INHALATION (08:33)
[2023-02-07] MEDS: amoxicillin-clav 875-125 mg Tablet 1 TAB PO ×2 (08:49→18:02)
[2023-02-07] MEDS: cetirizine 10 mg Tablet PO (08:50)
[2023-02-07] MEDS: pantoprazole DR 40 mg Tablet PO ×2 (08:50→18:01)
[2023-02-07] MEDS: enoxaparin 40 mg/0.4 mL Syringe SUBCUT (20:40)
[2023-02-08] VITALS (8 sets, daily range): BP systolic 130–159; BP diastolic 66–87; PULSE 64–75; RESP 17–20; O2SAT 86–98
[2023-02-08 05:30] LABS: Basophils % 0.5 %; Eosinophils # 0.3 10^3/uL (0.0-0.8); Eosinophils % 3.8 %; Hematocrit 43.5 % (37.0-47.0); Hemoglobin 13.6 g/dL (11.5-15.3); Mean Corpuscular HGB Conc 31.3 g/dL (30.0-36.0); Mean Corpuscular Hemoglobin 28.2 pg (28.0-34.0); Mean Corpuscular Volume 90.1 fl (81-99); Mean Platelet Volume 9.8 fL (7.4-10.4); Monocytes # 0.8 10^3/uL (0.2-0.9); Monocytes % 9.6 %; Neutrophils # 5.16 10^3/uL (1.8-7.7); Neutrophils % 61.6 %; Nucleated Red Blood Cells % 0 %; Platelet Count 295 10^3/cmm (130-400); Red Blood Count 4.83 10^6/uL (4.1-5.3); Red Cell Distribution Width 15.1 % (12.1-15.1); White Blood Count 8.4 10^3/uL (4.0-10.0)
[2023-02-08 05:52] LABS: Blood Urea Nitrogen 9 mg/dL (8-23); Calcium 8.4 mg/dL (8.5-10.5); Carbon Dioxide 25 mmol/L (22-29); Chloride 101 mmol/L (98-107); Glucose 85 mg/dL (65-115); Osmolality Calculated 282 mOsm/kg (285-295); Sodium 137 mmol/L (136-145)
[2023-02-08] MEDS: albuterol 2.5 mg/3 mL Neb INHALATION (08:21)
[2023-02-08] MEDS: budesonide 0.5 mg/2 mL Neb INHALATION (08:21)
--- NOTE | 2023-02-08 08:39 | PC.SOCIAL ---
IMM Update pg 2 of IMM updated and reviewed w/ patient. Copy provided and copy dated, initialed and placed in chart.
[2023-02-08] MEDS: pantoprazole DR 40 mg Tablet PO (08:57)
[2023-02-08] MEDS: cetirizine 10 mg Tablet PO (08:57)
[2023-02-08] MEDS: amoxicillin-clav 875-125 mg Tablet 1 TAB PO (08:57)
--- NOTE | 2023-02-08 09:51 | P.DS_ITS ---
Discharge Providers Date of Admission: 02/05/23 06:54 Date of Discharge: February 08, 2023 Attending Provider at Admission: Aquiles Alvarez MD Attending Provider at Discharge: Dagoberto Diego MD Primary Care Provider: Romeo Patterson DO Diagnoses at Discharge Discharge Diagnosis (1) Epigastric pain: Status: Acute (2) Sigmoid diverticulitis: Status: Acute (3) Congestive heart failure (CHF): Status: Acute (4) Essential hypertension: Status: Acute (5) Elevated TSH: Status: Acute (6) Hypokalemia: Status: Acute (7) Exertional dyspnea: Status: Acute Reason for Visit Reason for Visit: dyspnea Hospital Course Hospital Course 72-year-old female who carries history of preserved ejection fraction heart failure, was admitted for management of heart failure exacerbation, patient did very well with IV diuresis, she was requiring 2 L of oxygen especially at night, she does have nocturnal hypoxemia for undiagnosed sleep apnea and nocturnal hypoxemia, patient remained hemodynamically stable, echo showed moderate aortic stenosis with aortic regurgitation with preserved ejection fraction. I have prescribed her Lasix along potassium supplement for her congestive heart failure. Please note, she was diagnosed with diverticulitis for which she required IV antibiotics, IV antibiotics were switched to p.o. regimen when she remained afebrile without significant leukocytosis. She will get Augmentin for 4 days at the time of discharge. Cultures remain negative. She will require colonoscopy 2 to 3 weeks after she is recovered from diverticulitis episode. We will give her referral to see Dr. Hunt outpatient. For her hypertension I have added low-dose lisinopril along her amlodipine, she might need optimization of lisinopril or amlodipine dose, will give her close follow-up with her PCP Most likely the cause of heart failure exacerbation was undiagnosed sleep apnea/nocturnal hypoxemia, she will need annual cardiology follow-up for her valvular pathology I will let her PCP give her referral Physical Exam Narrative: Patient doing well Euvolemic Currently on room air Pleasant and cooperative GCS 15 S1, S2 Abdomen soft but distended Morbidly obese Discharge Data Studies Completed and Pending Completed Studies During Hospitalization Category Date Time Status CT abdomen pelvis wo con [id number] Stat Cat Scan 02/05/23 05:44 Completed CXRP [XR chest 1V portable [id number]] Routine Exams 02/06/23 17:47 Completed XR chest 1V portable [id number] Stat Exams 02/05/23 04:53 Completed CV. echo complete* [id number] Routine Ultrasound 02/05/23 12:08 Completed Pending at discharge Category Date Time Status Basic Metabolic Panel AM LABS Lab 02/09/23 04:00 Ordered Blood Culture Stat Lab 02/05/23 05:00 Results AMENA LOVING [Coronavirus PCR] Routine Lab 02/05/23 05:04 Received Complete Blood Count w/Auto AM LABS Lab 02/09/23 04:00 Ordered Radiology Impressions Abdomen/Pelvis CT 02/05/23 05:44 IMPRESSION: Imaging findings of acute sigmoid diverticulitis. ADDENDUM: 02/05/23 0642 IMPRESSION: 1. Acute sigmoid diverticulitis. 2. Imaging findings of mild pulmonary edema with small bilateral pleural effusions. Chest X-Ray 02/06/23 17:47 IMPRESSION: 1. Cardiomegaly. 2. Right lateral mid lung atelectasis. Laboratory Results WBC 8.4 10^3/uL (4.0-10.0) 02/08/23 04:37 RBC 4.83 10^6/uL (4.1-5.3) 02/08/23 04:37 Hgb 13.6 g/dL (11.5-15.3) 02/08/23 04:37 Hct 43.5 % (37.0-47.0) 02/08/23 04:37 MCV 90.1 fl (81-99) 02/08/23 04:37 MCH 28.2 pg (28.0-34.0) 02/08/23 04:37 MCHC 31.3 g/dL (30.0-36.0) 02/08/23 04:37 RDW 15.1 % (12.1-15.1) 02/08/23 04:37 Plt Count 295 10^3/cmm (130-400) 02/08/23 04:37 MPV 9.8 fL (7.4-10.4) 02/08/23 04:37 Neut % (Auto) 61.6 % 02/08/23 04:37 Lymph % (Auto) 24.0 % 02/08/23 04:37 [place] % (Auto) 9.6 % 02/08/23 04:37 Eos % (Auto) 3.8 % 02/08/23 04:37 Baso % (Auto) 0.5 % 02/08/23 04:37 Neut # (Auto) 5.16 10^3/uL (1.8-7.7) 02/08/23 04:37 Lymph # (Auto) 2.0 10^3/uL (0.8-4.8) 02/08/23 04:37 [place] # (Auto) 0.8 10^3/uL (0.2-0.9) 02/08/23 04:37 Eos # (Auto) 0.3 10^3/uL (0.0-0.8) 02/08/23 04:37 Baso # (Auto) 0.0 10^3/uL (0.0-0.1) 02/08/23 04:37 Nucleated RBC % (auto) 0 % 02/08/23 04:37 Nucleated RBCs # 0.0 /100WBC 02/08/23 04:37 Specimen Type Arterial 02/05/23 05:30 Sample Site Radial, right 02/05/23 05:30 ABG pH 7.46 (7.35-7.45) H 02/05/23 05:30 ABG pCO2 35.7 mmHg (35-45) 02/05/23 05:30 ABG pO2 62.5 mmHg (80.0-100.0) L 02/05/23 05:30 ABG HCO3 25.6 mmol/L (22-26) 02/05/23 05:30 ABG Base Excess 2.0 mmol/L (-2.0-2.0) 02/05/23 05:30 Basilio Test Pos 02/05/23 05:30 Hematocrit 41.9 % (37-47) 02/05/23 05:30 Hgb O2 Saturation 92.0 % (95-100) L 02/05/23 05:30 Carboxyhemoglobin 1.2 %THgb (0.4-20.1) 02/05/23 05:30 Methemoglobin 0.2 % (0.4-1.5) L 02/05/23 05:30 Total Hemoglobin 13.7 g/dL (12-16) 02/05/23 05:30 O2 Delivery Device Nc 02/05/23 05:30 O2 Liters/Min 5.0 % 02/05/23 05:30 Protective Signal Operations Supervisor ID [email or web address] 02/05/23 05:30 Sodium 137 mmol/L (136-145) 02/08/23 04:37 Potassium 4.0 mmol/L (3.5-5.1) 02/08/23 04:37 Chloride 101 mmol/L (98-107) 02/08/23 04:37 Carbon Dioxide 25 mmol/L (22-29) 02/08/23 04:37 Anion Gap 15.0 (5-19) 02/08/23 04:37 BUN 9 mg/dL (8-23) 02/08/23 04:37 Creatinine 0.5 mg/dL (0.5-0.9) 02/08/23 04:37 GFR Calculation Not Reportable 02/08/23 04:37 Glucose 85 mg/dL (65-115) 02/08/23 04:37 Calculated Osmolality 282 mOsm/kg (285-295) L 02/08/23 04:37 Lactic Acid 1.5 mmol/L (0.5-2.2) 02/05/23 05:10 Lactate Cancelled 02/05/23 05:10 Calcium 8.4 mg/dL (8.5-10.5) L 02/08/23 04:37 Phosphorus 3.1 mg/dL (2.5-4.5) 02/06/23 05:09 Magnesium 2.2 mg/dL (1.7-2.3) 02/07/23 02:20 Total Bilirubin 0.8 mg/dL (0.15-1.2) 02/05/23 06:13 AST 24 U/L (0-32) 02/05/23 06:13 ALT 23 U/L (0-33) 02/05/23 06:13 Alkaline Phosphatase 145 U/L (35-105) H 02/05/23 06:13 NT-Pro-B Natriuret Pep 1933 pg/mL (0-125) H 02/05/23 06:13 Total Protein 6.8 g/dL (6.6-8.7) 02/05/23 06:13 Albumin 3.3 g/dL (3.5-5.2) L 02/05/23 06:13 Globulin 3.5 g/dL (1.3-4.6) 02/05/23 06:13 Lipase 22 U/L (13-60) 02/05/23 04:56 Free T4 1.51 ng/dL (0.82-1.77) 02/07/23 02:20 Urine Color [place] (Yellow) 02/05/23 07:44 Urine Appearance Clear (CLEAR) 02/05/23 07:44 Urine pH 5 (5-7) 02/05/23 07:44 Ur Specific [place] 1.020 (1.005-1.030) 02/05/23 07:44 Urine Protein Trace (Negative) 02/05/23 07:44 Urine Glucose (UA) Norm (Normal) 02/05/23 07:44 Urine Ketones 1+ (Negative) H 02/05/23 07:44 Urine Blood Neg (Negative) 02/05/23 07:44 Urine Nitrate Negative (Negative) 02/05/23 07:44 Urine Bilirubin 1+ (Negative) H 02/05/23 07:44 Urine Urobilinogen 4 mg/dL (Negative) H 02/05/23 07:44 Ur Leukocyte Esterase Trace (Negative) H 02/05/23 07:44 Urine RBC None /hpf (0-2) 02/05/23 07:44 Urine WBC 10-15 /hpf (0-5) H 02/05/23 07:44 Ur Squamous Epith Cells 0-4 /hpf (0-5) H 02/05/23 07:44 Amorphous Sediment Not Reportable 02/05/23 07:44 Urine Bacteria 1+ /hpf (NONE) H 02/05/23 07:44 Coarse Granular Casts 0-4 /lpf H 02/05/23 07:44 Urine Mucus 1+ /hpf 02/05/23 07:44 Serum Ketones Negative (Negative) 02/05/23 04:56 Influenza Type A Ag negative (Negative) 02/05/23 05:19 Influenza Type B Ag negative (Negative) 02/05/23 05:19 Vitals Last Vital Signs Temp 97.9 F 02/07/23 20:00 Pulse 75 02/08/23 08:21 Resp 20 H 02/08/23 08:21 BP 155/87 02/08/23 08:00 Pulse Ox 93 02/08/23 08:27 O2 Del Method Room Air 02/08/23 08:27 O2 Flow Rate 2 02/08/23 00:00 FiO2 4 02/08/23 08:00 Discharge Plan Discharge Patient Disposition: Home Condition: Stable Prescriptions: New amoxicillin-pot clavulanate 875-125 mg Tablet 1 tab PO BID Qty: 8 0RF furosemide [Lasix] 20 mg tablet 20 mg PO DAILY Qty: 60 2RF lisinopril 5 mg tablet 5 mg PO DAILY Qty: 60 1RF potassium chloride 10 mEq tablet extended release 10 meq PO DAILY Qty: 60 3RF Continued amlodipine 5 mg tablet 5 mg PO DAILY Vitamin C 250 mg Tablet 250 mg PO DAILY cranberry 400 mg Capsule 400 mg PO DAILY Rx Instructions: administer with a meal cetirizine [Zyrtec] 10 mg Tablet 10 mg PO DAILY docusate sodium [Colace] 100 mg capsule 100 mg PO BID Qty: 30 0RF Discontinued ibuprofen 200 mg Tablet 600 mg PO Q6H PRN (Reason: Pain) Discharge Orders: Discharge Order (Routine); Ordered 02/08/23 Ordered By: Dagoberto Diego Other Ambulatory Orders: Sleep Study/Titration (Routine) Timeframe: 2 Weeks Facility: [facility] [place] - Location: [facility] [place] [facility] Ordered By: Dagoberto Diego Referrals: Romeo Patterson DO [Primary Care Provider] - 7-10 days Christopher Hunt DO [Physician] - 1 month (Need colonoscopy after diverticulitis) Discharge Diet: Cardiac Discharge Activity: Increase activity as tolerated Patient Instructions: Lisinopril (By mouth) (Prinivil, Zestril), Furosemide (By mouth) (Lasix), Potassium Chloride (By mouth) (K-Dur, K-Siomara, K-Tab, Yohannes Mur), Amoxicillin (By mouth), Hypokalemia (DC), Dyspnea (DC), Hypertension (DC), CHF Stoplight, Opioid Safety Discharge Attestations Time Spent in Discharge Care*: greater than 30 min Quality Metrics Clinical Quality Measures [ No reported AMI, CVA or VTE this stay] Coding Level of Care Code Acute Code for Chg Fwd Diagnoses Epigastric pain R10.13 Sigmoid diverticulitis K57.32 Congestive heart failure (CHF) I50.9 Essential hypertension I10 Elevated TSH R79.89 Hypokalemia E87.6 Exertional dyspnea R06.09
[2023-02-08 11:17] LABS: Glucose Point of Care 103 mg/dL (70-110)
--- NOTE | 2023-02-08 12:27 | PC.NURSE ---
home o2 delivered.discharge instructions given and explained.pt and spouse verb understanding of instructions.discharged via w/c to exit at this time
[2023-02-10 04:05] LABS: Acinetobacter baumannii Not Detected (NOT DETECT); Bacteroides fragilis Detected (NOT DETECT); Citrobacter Not Detected (NOT DETECT); Cronobacter sakazakii Not Detected (NOT DETECT); Enterobacter cloacae complex Not Detected (NOT DETECT); Enterobacter non cloacae Not Detected (NOT DETECT); Fusobacterium necrophorum Not Detected (NOT DETECT); Fusobacterium nucleatum Not Detected (NOT DETECT); Haemophilus influenzae Not Detected (NOT DETECT); Klebsiella pneumoniae group Not Detected (NOT DETECT); Morganella morganii Not Detected (NOT DETECT); Neisseria meningitidis Not Detected (NOT DETECT); Pan Candida Not Detected (NOT DETECT); Pan Gram-Positive Not Detected (NOT DETECT); Proteus mirabilis Not Detected (NOT DETECT); Pseudomonas aeruginosa Not Detected (NOT DETECT); Salmonella Not Detected (NOT DETECT); Serratia Not Detected (NOT DETECT); Serratia marcescens Not Detected (NOT DETECT); Stenotrophomonas maltophilia Not Detected (NOT DETECT)
== END 2023-02-08 12:28 | disposition home or self-care (01) | DRG 391 ==
LOC: ER 05:38 → ICU 07:57 → CSU 02-06 19:07
PROVIDERS: Emergency Medicine; Internal Medicine; Admitting Provider Internal Medicine; Emergency Provider Family Medicine; PCP Family Medicine; Visit Provider Internal Medicine
DX: K57.32 Diverticulitis of large intestine without perforation or abscess without bleeding (principal); I50.33 Acute on chronic diastolic (congestive) heart failure; J96.01 Acute respiratory failure with hypoxia; I11.0 Hypertensive heart disease with heart failure; E87.6 Hypokalemia; I35.2 Nonrheumatic aortic (valve) stenosis with insufficiency; G47.30 Sleep apnea, unspecified; K29.70 Gastritis, unspecified, without bleeding; T39.395A Adverse effect of other nonsteroidal anti-inflammatory drugs [NSAID], initial encounter
CPT/HCPCS: 36415; 36416; 36600; 51798; 71045; 74176; 80048; 80053; 81001; 82009; 82805; 82962; 83605; 83690; 83735; 83880; 84100; 84439; 85025; 87040; 87150; 87205; 87635; 87804; 93005; 93306; 94640; 94664; 94760; 96365; 96367; 96372; 96376; 97161; 99285; J0744; J1650; J1940; J1956; J3490; J7613; J7626

== ENCOUNTER → 2023-02-22 11:25 | Outpatient (BNVA) | payer MEDICARE, OTHER, SELFPAY | PROVIDERS: PCP Family Medicine; Visit Provider Surgery | DX: Z12.11 Encounter for screening for malignant neoplasm of colon (principal) | CPT/HCPCS: 99024; 99203 ==

== ENCOUNTER 2023-02-25 05:57 | Day surgery (SDC) | payer MEDICARE, OTHER, SELFPAY ==
[2023-02-24 08:31] VITALS: BMI 42.0
[2023-02-25 06:17] VITALS: BP 124/53; PULSE 68; RESP 18; TEMP 36.4; O2SAT 97
[2023-02-25] MEDS: sodium chloride 0.9% 1,000 ML 30 ML IV (06:29)
--- NOTE | 2023-02-25 07:00 | W.PM.OPSUD ---
Surgery/Procedure H&P Update DATE OF PROCEDURE: February 25, 2023 DATE H&P PERFORMED: 02/22/23 H&P UPDATE INFORMATION: I have reviewed H&P completed within last 30 days, I have examined patient prior to procedure and No changes to prior documentation PLANNED PROCEDURE: Operation Date: 02/25/23 07:00 Proposed Procedures p Colonoscopy 52831,Z12.11(Not Applicable) - Christopher Hunt, DO
--- NOTE | 2023-02-25 07:07 | ANES.PREANE2 ---
Pre-Anesthetic Assessment Height/Weight: Height 1.57 m Weight 104.326 kg Temp Pulse Resp BP Pulse Ox O2 Del Method O2 Flow Rate 97.6 F 68 18 124/53 97 Nasal Cannula 3 02/25/23 06:17 02/25/23 06:17 02/25/23 06:17 02/25/23 06:17 02/25/23 06:17 02/25/23 06:17 02/25/23 06:17 Operation Date: 02/25/23 07:00 Proposed Procedures p Colonoscopy 03245,Z12.11(Not Applicable) - Christopher Hunt DO Familial anesthetic complications: none Was Beta Kate taken within 24 hours: N/A Was Clonidine taken within 24 hours: N/A Last intake: Intake Last Liquid Date 02/24/23 Last Liquid Time 20:00 Last Solid Date 02/23/23 Last Solid Time 00:00 Last Intake: 22:00 Social No alcohol and No tobacco Exam alert and oriented x 3 Airway Submandibular: within normal limits Cervical ROM: within normal limits Mallampati: Class I Dentition: false (uppers) History/ROS No significant history except as noted 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 currently on oxygen due to pneumonia CV/HEM Hypertension and Murmur None reported Hepatic None reported GI None reported Metabolic Morbid Obesity [facility] None reported Neuropsych None reported Anesthetic Plan ASA status: 2 Anesthesia: Anesthesia Evaluation, General and MAC Risk of > 500 ml blood loss (7ml/kg in children): No Medications/Allergies Home Medications Medication Instructions Recorded Confirmed Last Taken Type cetirizine 10 mg tablet (Zyrtec) 10 mg PO DAILY 12/15/21 02/25/23 02/24/23 History ascorbic acid (vitamin C) 250 mg 250 mg PO DAILY 02/05/23 02/24/23 02/23/23 History tablet (Vitamin C) cranberry 400 mg capsule 400 mg PO DAILY 02/05/23 02/24/23 02/23/23 History lisinopril 5 mg tablet 5 mg PO DAILY #90 tabs 02/22/23 02/25/23 02/25/23 Rx Allergies Allergy/AdvReac Type Severity Reaction Status Date / Time formaldehyde Allergy Unknown Verified 02/24/23 08:30 grass pollen Allergy ALGY-Sneezi Verified 02/24/23 08:30 ng Current Medications Generic Name Dose Route Start Last Admin Trade Name Freq PRN Reason Stop Dose Admin Sodium Chloride 1,000 mls @ 30 mls/hr 02/24/23 15:15 02/25/23 06:29 Sodium Chloride 0.9% IV 02/25/23 15:14 30 mls/hr .Q24H ORALIA Administration PFSH Anesthesia Medical History (Updated 02/22/23 @ 14:37 by Romeo Patterson DO) Congestive heart failure (CHF) Elevated TSH Epigastric pain Essential hypertension Establishing care with new doctor, encounter for Exertional dyspnea Hypertension Hypokalemia Sigmoid diverticulitis Surgical History H/O dilation and curettage Status post laparoscopic cholecystectomy (12/16/21) Family History Father Heart disease Social History Smoking and tobacco status: never smoked Alcohol intake: never Substance/Drug Use: never Female Reproductive History Spontaneous abortions: No Data Anesthesia Cardiac Studies: Echocardiogram 02/05/23
[2023-02-25 07:44] VITALS: BP 113/74; PULSE 73; RESP 18; TEMP 36.1; O2SAT 92
--- NOTE | 2023-02-25 07:47 | ANE.PACU2 ---
Inpatient post-anesthesia follow up: Airway intact: Yes Vital signs: Temperature 97.0 F Pulse Rate 73 Respiratory Rate 18 Blood Pressure 113/74 Pulse Oximetry 92 Oxygen Delivery Me thod Nasal Cannula Oxygen Flow Rate 4 Fraction of Inspir ed Oxygen Hydration adequate: Yes Nausea and vomiting: No Pain level: 1 Mental status: Baseline
[2023-02-25] MEDS: ondansetron 2 mg/ML SDV 2 mL 4 MG IVP (07:59)
[2023-02-25 08:23] VITALS: BP 134/70; PULSE 64; RESP 18; O2SAT 96
== END 2023-02-25 08:43 | disposition home or self-care (01) ==
PROVIDERS: PCP Family Medicine; Visit Provider Surgery
PROC: 0DJD8ZZ Inspection of Lower Intestinal Tract, Via Natural or Artificial Opening Endoscopic (ICD-10-PCS; CPT 45378; principal; 2023-02-25 07:00)
DX: Z12.11 Encounter for screening for malignant neoplasm of colon (principal); D12.2 Benign neoplasm of ascending colon; D12.3 Benign neoplasm of transverse colon; K57.30 Diverticulosis of large intestine without perforation or abscess without bleeding; K64.8 Other hemorrhoids; I11.0 Hypertensive heart disease with heart failure; I50.9 Heart failure, unspecified
CPT/HCPCS: 45385; 88305; 96374; G0121; J2405; J2704; J7030

== ENCOUNTER 2023-02-26 14:05 | Observation (INO) | payer MEDICARE, OTHER, SELFPAY ==
[2023-02-26] VITALS (70 sets, daily range): BP systolic 84–145; BP diastolic 55–109; PULSE 55–156; RESP 13–29; TEMP 36.6–36.8; O2SAT 92–98; BMI 42.0
--- NOTE | 2023-02-26 14:40 | ECG_ITS ---
[facility] Test Date: 2023-02-26 Pat Name: Dmitriy Henriquez Department: Room: Gender: Female Supervisor Kennel: : 1950 Requested By: Madhu Earl Order Number: [id number] Roselia MD: Uzair Morales M.D. Measurements Intervals [place] Rate: 159 P: 0 NC: 0 QRS: -46 QRSD: 76 T: 59 QT: 290 QTc: 472 Interpretive Statements ATRIAL FIBRILLATION WITH RAPID VENTRICULAR RESPONSE LOW QRS VOLTAGE IN PRECORDIAL LEADS [QRS DEFLECTION < 1.0 mV IN CHEST LEADS] LEFT ANTERIOR FASCICULAR BLOCK [QRS AXIS <= -45, QR IN I, RS IN II] ANTEROSEPTAL MYOCARDIAL INFARCTION , OF INDETERMINATE AGE [40+ ms Q WAVE IN V1-V4] CRITICAL TEST RESULT Compared to ECG 02/05/2023 04:51:30 Left anterior fascicular block now present Sinus rhythm no longer present Left-axis deviation no longer present Myocardial infarct finding still present Electronically Signed On 02-26-2023 15:56:04 CDT by Uzair Morales M.D. [id number]
--- NOTE | 2023-02-26 14:40 | XRR_ITS ---
PROCEDURE INFORMATION: Exam: XR Chest Exam date and time: 02/26/2023 2:55 PM Age: 72 years old Clinical indication: Other: Tachycardia TECHNIQUE: Imaging protocol: Radiologic exam of the chest. Views: 1 view. COMPARISON: CR (CHEST, ) 02/06/2023 6:04 PM FINDINGS: Lungs: Unremarkable. No consolidation. Pleural spaces: Unremarkable. No pleural effusion. No pneumothorax. Heart/Mediastinum: Unremarkable. No cardiomegaly. Bones/joints: Unremarkable. XR/XR chest 1V portable [id number] IMPRESSION: No acute findings.
[2023-02-26] MEDS: sodium chloride 0.9% 1,000 ML 999 ML IV (14:52)
--- NOTE | 2023-02-26 14:58 | W.ED.ARRPALP ---
HPI - Arrhythmia/Palpitations General: Chief Complaint: Arrhythmia/Palpitations Stated Complaint: irregular hr, high bp Time Seen by Provider: 02/26/23 14:39 History of Present Illness: Patient presents to the ER with complaints of palpitations and high heart rate. Patient also reports her blood pressures been highly elevated compared to normal. Both of these started this morning when she was sitting reading a book. She woke up this morning feeling fine and all of a sudden she said she did not feel good checked her heart rate and pulse and is in the 120s and 130s with a blood pressure of these. Patient states this is never happened before. Patient denies any type of cardiac history such as MIs, stents, open heart surgery. Patient's not currently on any type of anticoagulation. Patient did not try any treatment at home prior to coming to the ER. This has been constant. Review of Systems General: Reports: 10 or more systems reviewed and unremarkable except in HPI and below PFSH ED PFSH: Medical History Congestive heart failure (CHF) Elevated TSH Epigastric pain Essential hypertension Establishing care with new doctor, encounter for Exertional dyspnea Hypertension Hypokalemia Sigmoid diverticulitis Surgical History H/O dilation and curettage Status post laparoscopic cholecystectomy (12/16/21) Family History Father Heart disease Social History Smoking and tobacco status: never smoked Alcohol intake: never Substance/Drug Use: never Female Reproductive History: Spontaneous abortions: No Physical Exam Const: COMMON NORMALS: no acute distress, average body habitus, patient oriented x3, no limitations, healthy appearing, alert and well nourished HENMT: COMMON NORMALS: normocephalic, atraumatic, hearing grossly normal bilaterally, external ears normal, Normal external nose present and moist oral mucous membranes HEAD & SCALP: normocephalic and atraumatic NOSE: Normal external nose present EXTERNAL EAR: Yes external ears normal Eye: COMMON NORMALS: Equal, round and reactive pupils present, EOMs intact bilaterally, conjunctivae normal and no scleral icterus CONJUNCTIVA: Yes conjunctivae normal PUPIL: Yes Equal, round and reactive pupils present Neck/C-Spine: COMMON NORMALS: full ROM, no lymphadenopathy, supple, no meningeal signs and no JVD Lymph: LYMPHATIC: no lymphadenopathy noted Chest: COMMONS NORMALS: normal inspection of the chest and normal palpation of entire chest wall Resp: COMMON NORMALS: normal respiratory effort, No retractions, No use of accessory muscles and clear to auscultation bilaterally AUSCULTATION: clear to auscultation bilaterally Cardio: COMMON NORMALS: no JVD, S1 normal heart sound present, S2 normal heart sound present, No gallops present (Cardio), No clicks present (Cardio) and No murmurs present (Cardio); negative for regular rate (Tachycardia) and negative for regular rhythm (Irregularly irregular) RATE: abnormal rate (Tachycardia) RHYTHM: abnormal rhythm (Irregularly irregular) HEART SOUNDS: S1 normal heart sound present and S2 normal heart sound present GI: COMMON NORMALS: Normal to inspection, nondistended, normoactive bowel sounds present, Soft to palpation, non-tender, No hepatosplenomegaly present and no masses PALPATION: Yes Soft to palpation and Yes No hepatosplenomegaly present Neuro: COMMON NORMALS: patient oriented x3 SENSORIUM/ORIENTATION: Yes alert MENINGEAL SIGNS: Yes no meningeal signs Course Vital Signs: Vital signs: Vital Signs Temperature 98.3 F 02/26/23 14:31 Pulse Rate 129 H 02/26/23 16:45 Respiratory Rate 20 H 02/26/23 16:45 Blood Pressure 135/98 02/26/23 16:45 Pulse Oximetry 95 02/26/23 16:45 Oxygen Delivery Me thod Nasal Cannula 02/26/23 14:31 Oxygen Flow Rate 2 02/26/23 14:31 MDM - Arrhythmia/Palpitations Medical Decision Making Presents to the ER with a heart rate about 140 beats minute in A-fib with RVR type pattern. Patient does not have a history of A-fib. Patient denies cardiac history. Patient states her blood pressures been high but upon arrival to the ER he was normal. Patient was given 10 mg IV Cardizem push and started on a Cardizem drip which initially controlled her rate better all the way down to about 110 bpm. Within patient rate more erratic up into the 130s 140s again. Dr. Diego was consulted for further evaluation and treatment admission to [facility]. Differential Diagnosis Likely palpitations and artial fibrillation; Unlikely anxiety, sinus tachycardia, artial flutter, ventricular premature beats, supraventricular tachycardia, ventricular tachycardia or WPW Medical Records I reviewed the patient's medical records. Lab Data I reviewed the patient's lab results. 02/26/23 14:49 02/26/23 14:49 Radiology Impressions Chest X-Ray 02/26/23 14:40 IMPRESSION: No acute findings. Laboratory Results WBC 8.8 10^3/uL (4.0-10.0) 02/26/23 14:49 RBC 4.92 10^6/uL (4.1-5.3) 02/26/23 14:49 Hgb 13.8 g/dL (11.5-15.3) 02/26/23 14:49 Hct 42.0 % (37.0-47.0) 02/26/23 14:49 MCV 85.4 fl (81-99) 02/26/23 14:49 MCH 28.0 pg (28.0-34.0) 02/26/23 14:49 MCHC 32.9 g/dL (30.0-36.0) 02/26/23 14:49 RDW 13.9 % (12.1-15.1) 02/26/23 14:49 Plt Count 165 10^3/cmm (130-400) 02/26/23 14:49 MPV 11.4 fL (7.4-10.4) H 02/26/23 14:49 Neut % (Auto) 60.8 % 02/26/23 14:49 Lymph % (Auto) 28.2 % 02/26/23 14:49 [place] % (Auto) 6.8 % 02/26/23 14:49 Eos % (Auto) 3.8 % 02/26/23 14:49 Baso % (Auto) 0.3 % 02/26/23 14:49 Neut # (Auto) 5.32 10^3/uL (1.8-7.7) 02/26/23 14:49 Lymph # (Auto) 2.5 10^3/uL (0.8-4.8) 02/26/23 14:49 [place] # (Auto) 0.6 10^3/uL (0.2-0.9) 02/26/23 14:49 Eos # (Auto) 0.3 10^3/uL (0.0-0.8) 02/26/23 14:49 Baso # (Auto) 0.0 10^3/uL (0.0-0.1) 02/26/23 14:49 Nucleated RBC % (auto) 0 % 02/26/23 14:49 Nucleated RBCs # 0.0 /100WBC 02/26/23 14:49 PT 14.30 SECONDS (12.1-14.9) 02/26/23 14:49 INR 1.08 (0.8-1.2) 02/26/23 14:49 Sodium 140 mmol/L (136-145) 02/26/23 14:49 Potassium 4.1 mmol/L (3.5-5.1) 02/26/23 14:49 Chloride 104 mmol/L (98-107) 02/26/23 14:49 Carbon Dioxide 25 mmol/L (22-29) 02/26/23 14:49 Anion Gap 15.1 (5-19) 02/26/23 14:49 BUN 7 mg/dL (8-23) L 02/26/23 14:49 Creatinine 0.6 mg/dL (0.5-0.9) 02/26/23 14:49 GFR Calculation Not Reportable 02/26/23 14:49 Glucose 94 mg/dL (65-115) 02/26/23 14:49 Calculated Osmolality 288 mOsm/kg (285-295) 02/26/23 14:49 Calcium 8.9 mg/dL (8.5-10.5) 02/26/23 14:49 Magnesium 2.2 mg/dL (1.7-2.3) 02/26/23 14:49 Total Bilirubin 0.5 mg/dL (0.15-1.2) 02/26/23 14:49 AST 18 U/L (0-32) 02/26/23 14:49 ALT 16 U/L (0-33) 02/26/23 14:49 Alkaline Phosphatase 74 U/L (35-105) 02/26/23 14:49 Troponin T Baseline 15 ng/L (0-10) H 02/26/23 15:28 Total Protein 6.9 g/dL (6.6-8.7) 02/26/23 14:49 Albumin 4.2 g/dL (3.5-5.2) 02/26/23 14:49 Globulin 2.7 g/dL (1.3-4.6) 02/26/23 14:49 Urine Color [place] (Yellow) 02/26/23 15:45 Urine Appearance Clear (CLEAR) 02/26/23 15:45 Urine pH 6.5 (5-7) 02/26/23 15:45 Ur Specific [place] 1.005 (1.005-1.030) 02/26/23 15:45 Urine Protein Neg (Negative) 02/26/23 15:45 Urine Glucose (UA) Norm (Normal) 02/26/23 15:45 Urine Ketones Negative (Negative) 02/26/23 15:45 Urine Blood Neg (Negative) 02/26/23 15:45 Urine Nitrate Negative (Negative) 02/26/23 15:45 Urine Bilirubin Neg (Negative) 02/26/23 15:45 Urine Urobilinogen Norm mg/dL (Negative) 02/26/23 15:45 Ur Leukocyte Esterase Negative (Negative) 02/26/23 15:45 EKG Data EKG 1: I personally reviewed and interpreted this EKG as follows: EKG interpretation date: 02/26/23 EKG interpretation time: 14:48 Prior EKG tracings: not available for review Interpretation: EKG shows ventricular rate 159 bpm in A-fib with RVR type pattern, QRS duration 76 QTc of 379, left anterior fascicular block, Q waves in V1 through V4. Other EKG comments: Chest X-Ray 02/26/23 14:40 IMPRESSION: No acute findings. Discharge Plan Discharge Patient Disposition: Admitted As Inpatient Clinical Impression: Atrial fibrillation with rapid ventricular response Condition: Stable Coding Level of Care Code ED Packing House Laborer for Neymar Byrd
[2023-02-26 15:01] LABS: Basophils % 0.3 %; Eosinophils # 0.3 10^3/uL (0.0-0.8); Eosinophils % 3.8 %; Hemoglobin 13.8 g/dL (11.5-15.3); Lymphocytes # 2.5 10^3/uL (0.8-4.8); Lymphocytes % 28.2 %; Mean Corpuscular HGB Conc 32.9 g/dL (30.0-36.0); Mean Corpuscular Volume 85.4 fl (81-99); Mean Platelet Volume 11.4 fL (7.4-10.4); Monocytes # 0.6 10^3/uL (0.2-0.9); Monocytes % 6.8 %; Neutrophils # 5.32 10^3/uL (1.8-7.7); Neutrophils % 60.8 %; Nucleated Red Blood Cells % 0 %; Platelet Count 165 10^3/cmm (130-400); Red Blood Count 4.92 10^6/uL (4.1-5.3); Red Cell Distribution Width 13.9 % (12.1-15.1); White Blood Count 8.8 10^3/uL (4.0-10.0)
--- NOTE | 2023-02-26 15:07 | PC.PHAR ---
pt states she takes care of her own medications-rx filled 01/07/23 90d/s amlodipine 5mg bid-pt states the dr barraza amlodipine but pt states she was trying not to have to come to the er today so she took an amlodipine today at 14:00-pt states the dr barraza lasix 20mg daily filled 02/08/23 90d/s kcl 10meq daily filled 02/08/23 90d/s-notes are made in the pharmacy comments
[2023-02-26] MEDS: dilTIAZem 5 mg/mL SDV 5 mL 10 MG IVP (15:12)
[2023-02-26] MEDS: dilTIAZem 100 MG in sodium chloride 0.9% (add-van) 100 ML 10 MG IV (15:12)
[2023-02-26 15:27] LABS: INR 1.08 (0.8-1.2)
[2023-02-26 15:32] LABS: Alanine Aminotransferase 16 U/L (0-33); Albumin Level 4.2 g/dL (3.5-5.2); Alkaline Phosphatase 74 U/L (35-105); Anion Gap 15.1 (5-19); Aspartate Amino Transferase 18 U/L (0-32); Blood Urea Nitrogen 7 mg/dL (8-23); Calcium 8.9 mg/dL (8.5-10.5); Carbon Dioxide 25 mmol/L (22-29); Chloride 104 mmol/L (98-107); Globulin 2.7 g/dL (1.3-4.6); Glucose 94 mg/dL (65-115); Magnesium 2.2 mg/dL (1.7-2.3); Osmolality Calculated 288 mOsm/kg (285-295); Potassium 4.1 mmol/L (3.5-5.1); Sodium 140 mmol/L (136-145); Total Bilirubin 0.5 mg/dL (0.15-1.2); Total Protein 6.9 g/dL (6.6-8.7)
[2023-02-26 16:13] LABS: Troponin(5th) Baseline 15 ng/L (0-10)
[2023-02-26 16:13] LABS: Add Urine Microscopic? NO; Charge for UA Resulting for Rev
[2023-02-26 16:24] LABS: Bilirubin Urine Neg (Negative); Blood Urine Neg (Negative); Glucose Urine UA Norm (Normal); Ketones Urine Negative (Negative); Leukocyte Esterase Urine Negative (Negative); Nitrate Urine Negative (Negative); Protein Urine Neg (Negative); Specific Gravity, Urine 1.005 (1.005-1.030); Urine Appearance Clear (CLEAR); Urine Color Straw (Yellow); Urobilinogen Urine Norm (Negative); pH Urine 6.5 (5-7)
--- NOTE | 2023-02-26 16:41 | ECG_ITS ---
[facility] Test Date: 2023-02-26 Pat Name: Dmitriy Henriquez Department: Room: Gender: Female Senior Physical Therapist: : 1950 Requested By: Madhu Earl Order Number: [id number] Roselia MD: Uzair Morales M.D. Measurements Intervals [place] Rate: 148 P: 0 AK: 0 QRS: -46 QRSD: 82 T: 63 QT: 300 QTc: 471 Interpretive Statements ATRIAL FIBRILLATION WITH RAPID VENTRICULAR RESPONSE LEFT AXIS DEVIATION [QRS AXIS < -30] LOW QRS VOLTAGE IN PRECORDIAL LEADS [QRS DEFLECTION < 1.0 mV IN CHEST LEADS] ANTEROSEPTAL MYOCARDIAL INFARCTION , OF INDETERMINATE AGE [40+ ms Q WAVE IN V1-V4] Compared to ECG 02/26/2023 14:48:58 Left-axis deviation now present Left anterior fascicular block no longer present Myocardial infarct finding still present Electronically Signed On 02-28-2023 18:46:38 CDT by Uzair Morales M.D. [id number]
[2023-02-26 17:25] LABS: Troponin 5 2HR 14.08 ng/L (0-10)
[2023-02-26 17:26] LABS: Troponin 5 2HR Delta -0.92 ABS# (0-10)
--- NOTE | 2023-02-26 17:56 | PM.HP ---
Providers/Chief Complaint Primary Care Provider: Romeo Patterson DO Chief Complaint: irregular hr, high bp History of Present Illness Dmitriy Henriquez is a 72 year old female who was recently discharged after management diverticulitis and CHF exacerbation came in for chief complaint of palpitations. In the ER she was diagnosed with A-fib RVR requiring Cardizem drip at 15 mg. Heart rate is still around 150s. No active chest pain but she experienced discomfort in her shoulders bilaterally. No nausea vomiting or shortness of breath. Patient woke up completely fine and around afternoon when she was reading her book she started experiencing palpitations. No previous history of A-fib Recently had colonoscopy polyps were removed by Dr. Hunt Review of Systems Const: Denies: fever(s) Eyes: Denies: change in vision ENMT: Denies: throat pain Card: Reports: palpitations; Denies: chest pain Resp: Denies: dyspnea GI: Denies: abdominal pain : Denies: flank pain Musc: Denies: neck pain Skin/Breast: Denies: rash Medications/Allergies Home Medications Medication Instructions Recorded Confirmed Last Taken Type cetirizine 10 mg tablet (Zyrtec) 10 mg PO QAM 12/15/21 02/26/23 02/26/23 History cranberry 400 mg capsule 400 mg PO BEDTIME 02/05/23 02/26/23 02/25/23 History hydrocortisone 2.5 % topical cream 1 applic [place] QID 10 days #30 grams 02/25/23 02/26/23 Unknown Rx with perineal applicator (Procto-Med HC) acetaminophen 500 mg tablet 500 mg PO Q6H PRN Pain 02/26/23 02/26/23 02/26/23 05:00 History amlodipine 5 mg tablet 5 mg PO .ONCE AT 14:00 TODAY 02/26/23 02/26/23 02/26/23 14:00 History see pharmacy comment ascorbic acid (vitamin C) 500 mg 500 mg PO QAM 02/26/23 02/26/23 02/26/23 History tablet (Vitamin C) lisinopril 5 mg tablet 5 mg PO QAM 02/26/23 02/26/23 02/26/23 History Allergies Allergy/AdvReac Type Severity Reaction Status Date / Time formaldehyde Allergy Unknown Verified 02/26/23 14:37 grass pollen Allergy ALGY-Sneezi Verified 02/26/23 14:37 ng PFSH Acute PFSH: Medical History Congestive heart failure (CHF) Elevated TSH Epigastric pain Essential hypertension Establishing care with new doctor, encounter for Exertional dyspnea Hypertension Hypokalemia Sigmoid diverticulitis Surgical History H/O dilation and curettage Status post laparoscopic cholecystectomy (12/16/21) Family History Father Heart disease Social History Smoking and tobacco status: never smoked Alcohol intake: never Substance/Drug Use: never Female Reproductive History: Spontaneous abortions: No Vitals/I&O/Wt Last Vital Signs Temp 98.3 F 02/26/23 14:31 Pulse 129 H 02/26/23 16:45 Resp 20 H 02/26/23 16:45 BP 135/98 02/26/23 16:45 Pulse Ox 95 02/26/23 16:45 O2 Del Method Nasal Cannula 02/26/23 14:31 O2 Flow Rate 2 02/26/23 14:31 02/26/23 02/26/23 02/26/23 06:59 14:59 22:59 Intake Total 1010.167 / 1010.167 Balance 1010.167 / 1010.167 Weight last 48 hrs Weight 104.326 kg Physical Exam Narrative: Clinically patient looks euvolemic Awake and alert GCS 15 A-fib RVR Variable S1-S2 Abdomen soft however distended Lower extremity no edema Pleasant and cooperative Currently on 2 L No audible stridor or wheezing . Stated age Data 02/26/23 14:49 02/26/23 14:49 A&P Assessment and plan (1) Atrial fibrillation with rapid ventricular response: (2) Hypertension: (3) Nocturnal hypoxemia: Plan New onset A-fib RVR Currently on Cardizem drip Titrate titrated overnight Add p.o. Cardizem to overlap as well [id number] 4, I will do therapeutic Lovenox at this point D-dimer Magnesium is 2 Nocturnal hypoxemia requires 2 L of oxygen at baseline Recent episode of reticulitis blood culture was positive with Bacteroides fragilis recently had colonoscopy, No active symptoms Afebrile Repeat blood cultures Hypertensive urgency Optimize antihypertensive regimen monitor closely with use of Cardizem which can drop her blood pressure DNR/DNI Cardiac diet We will obtain echo Attestations Medical Necessity Statement*: Less than 2 midnights anticipated for management of A-fib Diagnoses Atrial fibrillation with rapid ventricular response I48.91 Hypertension I10 Nocturnal hypoxemia G47.34
[2023-02-26 19:07] LABS: D Dimer 0.64 ug/mIFEU (0-0.59)
[2023-02-26] MEDS: enoxaparin 100 mg/mL Syringe SUBCUT (19:46)
[2023-02-26] MEDS: dilTIAZem 30 mg Tablet PO (21:00)
[2023-02-26 21:14] LABS: Troponin 5 6HR 22.02 ng/L (0-10)
[2023-02-26 21:24] LABS: Thyroid Stimulating Hormone 1.92 uIU/mL (0.27-4.20); Troponin 5 6HR Delta 7.02 ng/L (0-12)
[2023-02-27] VITALS (55 sets, daily range): BP systolic 126–155; BP diastolic 56–67; PULSE 52–70; RESP 13–28; TEMP 36.7–37; O2SAT 94–97
[2023-02-27 02:46] LABS: Anion Gap 11.6 (5-19); Blood Urea Nitrogen 5 mg/dL (8-23); C Reactive Protein 4.7 mg/L (0.0-4.9); Calcium 8.3 mg/dL (8.5-10.5); Carbon Dioxide 26 mmol/L (22-29); Chloride 108 mmol/L (98-107); Glucose 89 mg/dL (65-115); Magnesium 2.1 mg/dL (1.7-2.3); Osmolality Calculated 291 mOsm/kg (285-295); Potassium 3.6 mmol/L (3.5-5.1); Sodium 142 mmol/L (136-145)
[2023-02-27] MEDS: lisinopril 5 mg Tablet PO (05:45)
[2023-02-27] MEDS: ascorbic acid 500 mg Tablet PO (05:45)
[2023-02-27] MEDS: dilTIAZem ER (24HR) 120 mg Capsule PO (08:59)
[2023-02-27] MEDS: enoxaparin 100 mg/mL Syringe SUBCUT (09:00)
--- NOTE | 2023-02-27 10:57 | PM.DCS ---
Discharge Providers Date of Admission: 02/26/23 17:08 Date of Discharge: February 27, 2023 Attending Provider at Admission: Dagoberto Diego MD Attending Provider at Discharge: Dagoberto Diego MD Primary Care Provider: Romeo Patterson DO Diagnoses at Discharge Discharge Diagnosis (1) Atrial fibrillation with rapid ventricular response: Status: Acute (2) Hypertension: Status: Acute (3) Nocturnal hypoxemia: Status: Acute Reason for Visit Reason for Visit: irregular hr, high bp Hospital Course Hospital Course 72-year-old female who presented to the hospital with palpitations and hypertension, she was diagnosed with new onset A-fib with RVR which was controlled with Cardizem drip and transition to p.o. Cardizem at the time of discharge, [id number] is 4 she will need Eliquis 5 mg twice a day, D-dimer is not high, magnesium at goal. Patient has converted to sinus rhythm at the time of discharge I will prescribe her Cardizem 120 mg standard release along with Eliquis 5 mg twice daily. I will discontinue her amlodipine and optimize lisinopril dose, patient is asymptomatic being discharged with stable hemodynamics. CODE STATUS was discussed she remains DNR/DNI. She requires 2 L of oxygen for nocturnal hypoxemia. Physical Exam Narrative: Awake and alert Sinus rhythm heart rate in 60s Blood pressure 150s systolic Nonfocal neuro exam Pleasant and cooperative Discharge Data Studies Completed and Pending Completed Studies During Hospitalization Category Date Time Status XR chest 1V portable [id number] Stat Exams 02/26/23 14:40 Completed Pending at discharge Category Date Time Status Blood Culture Stat Lab 02/26/23 18:38 Results CV. echo lmt w/w contras [id number] Routine Ultrasound 02/26/23 19:17 Ordered Radiology Impressions Chest X-Ray 02/26/23 14:40 IMPRESSION: No acute findings. Laboratory Results WBC 8.8 10^3/uL (4.0-10.0) 02/26/23 14:49 RBC 4.92 10^6/uL (4.1-5.3) 02/26/23 14:49 Hgb 13.8 g/dL (11.5-15.3) 02/26/23 14:49 Hct 42.0 % (37.0-47.0) 02/26/23 14:49 MCV 85.4 fl (81-99) 02/26/23 14:49 MCH 28.0 pg (28.0-34.0) 02/26/23 14:49 MCHC 32.9 g/dL (30.0-36.0) 02/26/23 14:49 RDW 13.9 % (12.1-15.1) 02/26/23 14:49 Plt Count 165 10^3/cmm (130-400) 02/26/23 14:49 MPV 11.4 fL (7.4-10.4) H 02/26/23 14:49 Neut % (Auto) 60.8 % 02/26/23 14:49 Lymph % (Auto) 28.2 % 02/26/23 14:49 [place] % (Auto) 6.8 % 02/26/23 14:49 Eos % (Auto) 3.8 % 02/26/23 14:49 Baso % (Auto) 0.3 % 02/26/23 14:49 Neut # (Auto) 5.32 10^3/uL (1.8-7.7) 02/26/23 14:49 Lymph # (Auto) 2.5 10^3/uL (0.8-4.8) 02/26/23 14:49 [place] # (Auto) 0.6 10^3/uL (0.2-0.9) 02/26/23 14:49 Eos # (Auto) 0.3 10^3/uL (0.0-0.8) 02/26/23 14:49 Baso # (Auto) 0.0 10^3/uL (0.0-0.1) 02/26/23 14:49 Nucleated RBC % (auto) 0 % 02/26/23 14:49 Nucleated RBCs # 0.0 /100WBC 02/26/23 14:49 PT 14.30 SECONDS (12.1-14.9) 02/26/23 14:49 INR 1.08 (0.8-1.2) 02/26/23 14:49 D-Dimer 0.64 ug/mIFEU (0-0.59) H 02/26/23 18:32 Sodium 142 mmol/L (136-145) 02/27/23 02:14 Potassium 3.6 mmol/L (3.5-5.1) 02/27/23 02:14 Chloride 108 mmol/L (98-107) H 02/27/23 02:14 Carbon Dioxide 26 mmol/L (22-29) 02/27/23 02:14 Anion Gap 11.6 (5-19) 02/27/23 02:14 BUN 5 mg/dL (8-23) L 02/27/23 02:14 Creatinine 0.6 mg/dL (0.5-0.9) 02/27/23 02:14 GFR Calculation Not Reportable 02/27/23 02:14 Glucose 89 mg/dL (65-115) 02/27/23 02:14 Calculated Osmolality 291 mOsm/kg (285-295) 02/27/23 02:14 Calcium 8.3 mg/dL (8.5-10.5) L 02/27/23 02:14 Magnesium 2.1 mg/dL (1.7-2.3) 02/27/23 02:14 Total Bilirubin 0.5 mg/dL (0.15-1.2) 02/26/23 14:49 AST 18 U/L (0-32) 02/26/23 14:49 ALT 16 U/L (0-33) 02/26/23 14:49 Alkaline Phosphatase 74 U/L (35-105) 02/26/23 14:49 Troponin T Baseline 15 ng/L (0-10) H 02/26/23 15:28 Troponin T 120 Minute 14.08 ng/L (0-10) H 02/26/23 16:48 Delta Troponin T -0.92 ABS# (0-10) L 02/26/23 16:48 Troponin T Hi Sens 6Hr 22.02 ng/L (0-10) H 02/26/23 20:50 Troponin T Hi Sens 6Hr Delta 7.02 ng/L (0-12) 02/26/23 20:50 C-Reactive Protein 4.7 mg/L (0.0-4.9) 02/27/23 02:14 Total Protein 6.9 g/dL (6.6-8.7) 02/26/23 14:49 Albumin 4.2 g/dL (3.5-5.2) 02/26/23 14:49 Globulin 2.7 g/dL (1.3-4.6) 02/26/23 14:49 TSH 1.92 uIU/mL (0.27-4.20) 02/26/23 20:50 Urine Color Straw (Yellow) 02/26/23 15:45 Urine Appearance Clear (CLEAR) 02/26/23 15:45 Urine pH 6.5 (5-7) 02/26/23 15:45 Ur Specific [place] 1.005 (1.005-1.030) 02/26/23 15:45 Urine Protein Neg (Negative) 02/26/23 15:45 Urine Glucose (UA) Norm (Normal) 02/26/23 15:45 Urine Ketones Negative (Negative) 02/26/23 15:45 Urine Blood Neg (Negative) 02/26/23 15:45 Urine Nitrate Negative (Negative) 02/26/23 15:45 Urine Bilirubin Neg (Negative) 02/26/23 15:45 Urine Urobilinogen Norm mg/dL (Negative) 02/26/23 15:45 Ur Leukocyte Esterase Negative (Negative) 02/26/23 15:45 Vitals Last Vital Signs Temp 98.0 F 02/27/23 04:14 Pulse 61 02/27/23 07:43 Resp 16 02/27/23 07:43 BP 134/64 02/27/23 04:14 Pulse Ox 96 02/27/23 07:43 O2 Del Method Nasal Cannula 02/27/23 07:43 O2 Flow Rate 2 02/27/23 07:43 Discharge Plan Discharge Patient Disposition: Home Condition: Stable Prescriptions: New Eliquis 5 mg tablet 5 mg PO BID Qty: 120 4RF diltiazem HCl 120 mg Capsule,Extended Release 24hr 120 mg PO DAILY Qty: 90 3RF Continued cranberry 400 mg Capsule 400 mg PO BEDTIME Rx Instructions: administer with a meal hydrocortisone [Procto-Med HC] 2.5 % cream with perineal applicator 1 applic [place] QID 10 Days Qty: 30 0RF Rx Instructions: May use for up to 3 weeks if no resolution after 10 days (pt not used as of 02/26/23) Tylenol Ex Str Rapid Release 500 mg Tablet 500 mg PO Q6H PRN (Reason: Pain) Vitamin C 500 mg Tablet 500 mg PO QAM cetirizine [Zyrtec] 10 mg Tablet 10 mg PO QAM Changed lisinopril 5 mg tablet 20 mg PO QAM Qty: 30 2RF Discontinued amlodipine 5 mg tablet 5 mg PO .ONCE AT 14:00 TODAY Discharge Orders: Discharge Order (Routine); Ordered 02/27/23 Ordered By: Dagoberto Diego Referrals: Romeo Patterson DO [Primary Care Provider] - 2 weeks Discharge Diet: Cardiac Discharge Activity: Increase activity as tolerated Patient Instructions: Opioid Safety Discharge Attestations Time Spent in Discharge Care*: greater than 30 min Quality Metrics Clinical Quality Measures [ No reported AMI, CVA or VTE this stay] Coding Level of Care Code Acute Code for Chg Fwd Diagnoses Atrial fibrillation with rapid ventricular response I48.91 Hypertension I10 Nocturnal hypoxemia G47.34
--- NOTE | 2023-02-27 11:24 | PC.NURSE ---
Pt pharmacy is close today will be open tomorrow at 8 am Pt will need her Cardizem and Eliquis as new Rx. Notified hospitalist that pt received her 100 mg of Lovenox today and if okay to restart Elquis tomorrow. Per Dr Diego it is okay to start the Eliquis tomorrow. Eliquis Coupon provided to pt.
--- NOTE | 2023-02-27 12:54 | PC.NURSE ---
Asked Doctor Pt is concern on the increase of her Lisinopril from 5 mg to 20 mg? Pt said it is a big increase. Dr Diego notified via voalte phone and received reply to start it at 10 mg and increase gradually as BP tolerates. Educate pt on monitoring her Heart rate and blood pressure at home and to keep a record to bring to her next pcp appointment. Educate pt to monitor for common side effects of her new meds, signs of bleeding, low HR and BP. And to start 10 mg of Lisinopril for now per and increase gradually per hospitalist order. Pt verbalizes understanding. discharge packet provided to pt.
--- NOTE | 2023-02-27 19:17 | USCV_ITS ---
Dmitriy Henriquez Age: 72 Gender: F : 1950 Exam Date: 02/27/2023 12:20 Ordering Phys: Dagoberto Diego MD Technologist: ÁLVARO [place] [facility] [place]: Atrial [place] BP: / HR: 69 Rhythm: Sinus Technical Quality: Adequate MEASUREMENTS (Male / Female) Normal Values 2D ECHO LV Diastolic Diameter PLAX 4.6 cm 4.2 - 5.9 / 3.9 - 5.3 cm LV Systolic Diameter PLAX 3.9 cm IVS Diastolic Thickness 1.1 cm 0.6 - 1.0 / 0.6 - 0.9 cm IVS Systolic Thickness 1.1 cm LVPW Diastolic Thickness 0.9 cm 0.6 - 1.0 / 0.6 - 0.9 cm LVPW Systolic Thickness 1.5 cm LV Ejection Fraction 2D Teich 31.9 % FINDINGS Left Ventricle Normal left ventricular size, systolic function and wall thickness, with no regional wall motion abnormalities. Left ventricular ejection fraction is estimated at 70 %. Right Ventricle Normal right ventricular size and systolic function. Right Atrium Right atrium not well visualized. Left Atrium Left atrium not well visualized. Mitral Valve Mildly thickened mitral valve. Aortic Valve Aortic valve not well visualized. Tricuspid Valve Structurally normal tricuspid valve. Pulmonic Valve Pulmonic valve not well visualized. Pericardium No pericardial effusion. Aorta Normal size aortic root and proximal ascending aorta. IVC Inferior vena cava not visualized. CONCLUSIONS 1. Technically difficult and limited study. Optison was used per protocol. 2. Normal left ventricular size, systolic function and wall thickness, with no regional wall motion abnormalities. Left ventricular ejection fraction is estimated at 70 %. 3. Valves were not completely evaluated in this study. 4. Direct comparison to previous study from last month is not possible. Tonie De La Torre MD (Electronically Signed) Final Date: 28 February 2023 11:48 S
== END 2023-02-27 13:25 | disposition home or self-care (01) ==
LOC: ER 17:33 → CSU 18:26
PROVIDERS: Admitting Provider Internal Medicine; Emergency Provider Emergency Medicine; PCP Family Medicine; Visit Provider Internal Medicine
DX: I48.91 Unspecified atrial fibrillation (principal); G47.36 Sleep related hypoventilation in conditions classified elsewhere; I50.9 Heart failure, unspecified; I11.0 Hypertensive heart disease with heart failure; Z66 Do not resuscitate
CPT/HCPCS: 36415; 71045; 80048; 80053; 81003; 83735; 84443; 84484; 85025; 85378; 85610; 86140; 87040; 93005; 93308; 96372; 96374; 99285; C8924; G0378; J1650; J3490; J7030

== ENCOUNTER → 2023-03-09 17:34 | Outpatient (BNVA) | payer MEDICARE, OTHER, SELFPAY | PROVIDERS: PCP Family Medicine; Visit Provider Surgery | DX: Z09 Encounter for follow-up examination after completed treatment for conditions other than malignant neoplasm (principal) | CPT/HCPCS: 99212 ==

== ENCOUNTER → 2023-09-12 09:28 | Outpatient (BNVA) | payer MEDICARE, OTHER, SELFPAY | PROVIDERS: PCP Family Medicine; Visit Provider Family Medicine | DX: I48.91 Unspecified atrial fibrillation (principal); I50.9 Heart failure, unspecified; I10 Essential (primary) hypertension; I48.0 Paroxysmal atrial fibrillation; I50.32 Chronic diastolic (congestive) heart failure | CPT/HCPCS: 80053; 85025 ==

== ENCOUNTER → 2024-09-03 08:52 | Outpatient (BNVA) | payer MEDICARE, OTHER, SELFPAY | PROVIDERS: PCP Family Medicine; Visit Provider Family Medicine | DX: I10 Essential (primary) hypertension (principal); I48.0 Paroxysmal atrial fibrillation; Z79.01 Long term (current) use of anticoagulants | CPT/HCPCS: 80053; 85025 ==

== ENCOUNTER → 2025-02-04 09:07 | Outpatient (BNVA) | payer MEDICARE, OTHER, SELFPAY | PROVIDERS: PCP Family Medicine; Visit Provider Family Medicine | DX: I48.0 Paroxysmal atrial fibrillation (principal); I10 Essential (primary) hypertension; Z79.01 Long term (current) use of anticoagulants; K76.0 Fatty (change of) liver, not elsewhere classified; G47.34 Idiopathic sleep related nonobstructive alveolar hypoventilation; I50.32 Chronic diastolic (congestive) heart failure | CPT/HCPCS: 80053; 80061; 85025 ==